=== PATIENT | female | born 1985 | race Caucasian/White ===

== ENCOUNTER → 2017-12-10 11:46 | Outpatient (CLI) | payer OTHER, MEDICAID, SELFPAY ==
[2017-12-10 12:38] LABS: Appearance Urine UA CLEAR; Bilirubin Urine UA NEGATIVE (NEGATIVE); Color Urine UA YELLOW; Glucose Urine UA NEGATIVE (Normal); Ketones Urine UA TRACE (NEGATIVE); Leukocyte Esterase Urine UA NEGATIVE (NEGATIVE); Nitrite Urine UA NEGATIVE (NEGATIVE); Occult Blood Urine UA NEGATIVE (Negative); Protein Urine UA NEGATIVE (Negative); Urobilinogen Urine UA 0.2 E.U./dL (0.2)
[2017-12-10 12:40] LABS: Add Manual Diff / Slide Review NO; Eosinophils Percent Auto 2.7 % (2-4); Hematocrit 38.2 % (36-46); Hemoglobin 13.1 g/dL (12.0-16.0); Lymphocytes Percent Auto 39.1 % (25-40); Mean Corpuscular HGB Conc 34.4 % (30-36); Mean Corpuscular Hemoglobin 31.4 PG (26-34); Mean Corpuscular Volume 91.3 fL (80-100); Monocytes Percent Auto 8.6 % (3-14); Neutrophils Absolute Auto 3600 /uL (3000-5900); Neutrophils Percent Auto 48.6 % (50-75); Platelet Count 200 X10^3/uL (150-400); Red Blood Cell Count 4.18 X10^6/uL (4.0-5.2); Red Cell Distribution Width 11.7 % (11.6-14.8); White Blood Cell Count 7.3 X10^3/uL (4.5-11.0)
[2017-12-10 12:55] LABS: Amorphous Sediment Urine 1+; Bacteria Urine Occasional (0-1); Mucus Urine 1+ (Negative); Squamous Epithelial Cell Urine 5-10 /HPF; WBC Urine 1-5/HPF (0-5/HPF)
[2017-12-10 12:56] LABS: Culture Indicated Urine Cult Not Indicated
[2017-12-10 13:23] LABS: Thyroid Stimulating Hormone 0.76 uIU/mL (0.47-4.68)
== END ==
PROVIDERS: PCP Family Medicine; Visit Provider Nurse Practitioner Family
DX: K92.1 Melena (principal); K59.09 Other constipation; R19.5 Other fecal abnormalities; R19.7 Diarrhea, unspecified
CPT/HCPCS: 36415; 81001; 84443; 85025

== ENCOUNTER → 2017-12-10 12:01 | Outpatient (CLI) | payer OTHER, MEDICAID, SELFPAY ==
--- NOTE | 2017-12-10 12:05 | DI.RAD.S_ITS ---
PROCEDURE: XR ACUTE ABDOMEN SERIES INDICATIONS: diarrhea TECHNIQUE: One view chest and two views of the abdomen were acquired. COMPARISON: None. FINDINGS: Surgical changes and devices: PTE in the central pelvis. Status post right hip nailing.. Chest: Lungs are clear. Heart size is normal. No pleural effusions. No pneumoperitoneum. Abdomen: Bowel gas pattern is normal. A rounded focus of sclerosis is present overlying the right humeral neck, likely bone island but indeterminate. Visualized solid organ contours appear normal. Bones: No suspicious bony lesions. IMPRESSION: 1. Normal chest and abdomen. 2. IUD in the pelvis. Dictated by: Jack Price M.D. on 12/10/2017 at 12:53 Approved by: Jack Price M.D. on 12/10/2017 at 12:55
== END ==
PROVIDERS: PCP Family Medicine; Visit Provider Nurse Practitioner Family
DX: R19.7 Diarrhea, unspecified (principal)
CPT/HCPCS: 36415; 74022; 81001; 84443; 85025

== ENCOUNTER 2017-12-11 19:09 | Emergency (ER) | payer OTHER, MEDICAID, SELFPAY ==
[2017-12-11 19:23] VITALS: BP 158/99; PULSE 68; RESP 14; O2SAT 100
--- NOTE | 2017-12-11 19:26 | ED.GIBLEED ---
HPI - GI Bleed <Natalie Bae PA-C - Last Filed: 12/11/17 21:54> General Chief complaint: GI Bleed Stated complaint: BLOOD IN STOOL Time Seen by Provider: 12/11/17 19:22 Source: patient Mode of arrival: ambulatory Limitations: no limitations History of Present Illness HPI Narrative: This 32-year-old female comes to ED tonight due to increasing frequency of diarrhea and blood in the stools. She just saw her PCP for this yesterday. She states that currently, she is having diarrhea up to a couple of times every hour, up to 30 times daily. She describes the stools as loose and flaky. They are keeping her from regular activity. She states that she will occasionally see mucus in the stools, but for the last 2 months has also had blood in the stools a and on top of the stools intermittently, which she describes as bright red. She states she has had some intermittent nausea with this and at times has had crampy pain which is mild off and on. Currently, she denies any pain or nausea. She states she has had a little bit of burning sensation in the mid abdomen today. She states she has not had any fevers in the last 10 days, prior to that she had some intermittent fever at night. She has not had any weakness or dizziness. She has not had any palpitations, chest pain, dyspnea and no other new complaints today, came in because her PCP told her to come in if symptoms worse. She denies any recent medication changes, new supplements, antibiotic use. She denies any recent travel or known exposures. She denies any diet changes. She states that she had a colonoscopy at age 17 due to constipation followed by a severe diarrhea and this was normal. She has had intermittent constipation and diarrhea since but not with bleeding like she has now. Just prior to onset of these sx about 2 months ago, her son came down with infectious Yersinia hemolytica after being exposed [place] and eating the food. She does not know of an other potential exposures Related Data Home Medications Medication Instructions Recorded Confirmed vit-iron fum-folic ac 1 cap PO QDAY #0 10/19/16 12/10/17 [Mynatal] Previous Rx's Medication Instructions Recorded levonorgestrel [Mirena] 52 mg INTRAU SEE INSTRUCTIONS #1 ea 01/12/17 levothyroxine 0.05 mg PO QAM #30 tab 02/01/17 acyclovir [Zovirax] 400 mg PO BID #90 tab 05/11/17 levothyroxine 88 mcg PO Q DAY #90 tab 06/26/17 Allergies Allergy/AdvReac Type Severity Reaction Status Date / Time latex [LATEX] Allergy Severe HIVES Unverified 12/10/17 11:12 oxycodone [OXYCODONE] AdvReac Severe HALLUCINATIONS, Unverified 12/10/17 11:12 DIDN'T EAT FOR 4 DAYS Review of Systems <RICK Craven Last Filed: 12/11/17 21:54> Review of Systems All systems reviewed & are unremarkable except as noted in HPI and below Exam <RICK Craven Last Filed: 12/11/17 21:54> Narrative Exam Narrative: GENERAL APPEARANCE: Patient sitting comfortably, in no distress. HEENT: PERRL, EOMI, no scleral icterus, conjunctivae pink NECK: Supple LUNGS: Clear to auscultation bilaterally. HEART: Rate and rhythm regular, normal S1 and S2, no S3 or S4. ABDOMEN: Soft, nontender, nondistended, bowel sounds present x 4 quadrants, no masses palpable, no hepatosplenomegaly. EXTREMITIES: No edema DERMATOLOGIC: No jaundice or exanthem NEUROLOGIC: Alert and oriented with normal speech and coordination MS: No joint effusion MDM - GI Bleed <RICK Craven Last Filed: 12/11/17 21:54> Lab Data Attestation: I reviewed the patient's lab results. Result diagrams: 12/11/17 19:30 12/11/17 19:30 Lab Results 12/11/17 12/11/17 12/11/17 Range/Units 19:30 19:30 19:35 WBC 9.0 (4.5-11.0) X10^3/uL RBC 4.31 (4.0-5.2) X10^6/uL Hgb 13.6 (12.0-16.0) g/dL Hct 39.1 (36-46) % MCV 90.8 (80-100) fL MCH 31.5 (26-34) PG MCHC 34.7 (30-36) % RDW 12.0 (11.6-14.8) % Plt Count 213 (150-400) X10^3/uL Neut % (Auto) 49.7 L (50-75) % Lymph % (Auto) 39.9 (25-40) % [place] % (Auto) 6.7 (3-14) % Eos % (Auto) 3.1 (2-4) % Baso % (Auto) 0.6 (0-2) % Neut # (Auto) 4500 (5366-0371) /uL ESR 7 (0-20) MM/HR Sodium 143 (137-145) mmol/L Potassium 3.7 (3.4-5.1) mmol/L Chloride 103.0 (98-107) mmol/L Carbon Dioxide 26.0 (22-32) mmol/L BUN 12.0 (7-17) mg/dL Creatinine 0.90 (0.52-1.04) mg/dL Estimated GFR > 60.0 (>60) mL/min BUN/Creatinine Ratio 13.3 (6-22) Glucose 91 (70-100) mg/dL Calcium 9.6 (8.4-10.2) mg/dL Magnesium (1.6-2.3) mg/dL Total Bilirubin 0.4 (0.2-1.3) mg/dL AST 25 (14-36) IU/L ALT 25 (9-52) IU/L Alkaline Phosphatase 63 (38-126) U/L C-Reactive Protein (<1.0) mg/dL Total Protein 8.1 (6.3-8.2) g/dL Albumin 4.9 (3.5-5.0) g/dL Globulin 3.2 (1.7-4.1) g/dL Albumin/Globulin Ratio 1.5 (1.0-2.8) 05/15/18 Range/Units 19:35 WBC (4.5-11.0) X10^3/uL RBC (4.0-5.2) X10^6/uL Hgb (12.0-16.0) g/dL Hct (36-46) % MCV (80-100) fL MCH (26-34) PG MCHC (30-36) % RDW (11.6-14.8) % Plt Count (150-400) X10^3/uL Neut % (Auto) (50-75) % Lymph % (Auto) (25-40) % [place] % (Auto) (3-14) % Eos % (Auto) (2-4) % Baso % (Auto) (0-2) % Neut # (Auto) (7830-6451) /uL ESR (0-20) MM/HR Sodium (137-145) mmol/L Potassium (3.4-5.1) mmol/L Chloride (98-107) mmol/L Carbon Dioxide (22-32) mmol/L BUN (7-17) mg/dL Creatinine (0.52-1.04) mg/dL Estimated GFR (>60) mL/min BUN/Creatinine Ratio (6-22) Glucose (70-100) mg/dL Calcium (8.4-10.2) mg/dL Magnesium 2.0 (1.6-2.3) mg/dL Total Bilirubin (0.2-1.3) mg/dL AST (14-36) IU/L ALT (9-52) IU/L Alkaline Phosphatase (38-126) U/L C-Reactive Protein < 0.5 (<1.0) mg/dL Total Protein (6.3-8.2) g/dL Albumin (3.5-5.0) g/dL Globulin (1.7-4.1) g/dL Albumin/Globulin Ratio (1.0-2.8) <Nena Rockwell, DO - Last Filed: 12/12/17 00:58> Lab Data Lab Results 12/11/17 12/11/17 12/11/17 Range/Units 19:30 19:30 19:35 WBC 9.0 (4.5-11.0) X10^3/uL RBC 4.31 (4.0-5.2) X10^6/uL Hgb 13.6 (12.0-16.0) g/dL Hct 39.1 (36-46) % MCV 90.8 (80-100) fL MCH 31.5 (26-34) PG MCHC 34.7 (30-36) % RDW 12.0 (11.6-14.8) % Plt Count 213 (150-400) X10^3/uL Neut % (Auto) 49.7 L (50-75) % Lymph % (Auto) 39.9 (25-40) % [place] % (Auto) 6.7 (3-14) % Eos % (Auto) 3.1 (2-4) % Baso % (Auto) 0.6 (0-2) % Neut # (Auto) 4500 (4850-1816) /uL ESR 7 (0-20) MM/HR Sodium 143 (137-145) mmol/L Potassium 3.7 (3.4-5.1) mmol/L Chloride 103.0 (98-107) mmol/L Carbon Dioxide 26.0 (22-32) mmol/L BUN 12.0 (7-17) mg/dL Creatinine 0.90 (0.52-1.04) mg/dL Estimated GFR > 60.0 (>60) mL/min BUN/Creatinine Ratio 13.3 (6-22) Glucose 91 (70-100) mg/dL Calcium 9.6 (8.4-10.2) mg/dL Magnesium (1.6-2.3) mg/dL Total Bilirubin 0.4 (0.2-1.3) mg/dL AST 25 (14-36) IU/L ALT 25 (9-52) IU/L Alkaline Phosphatase 63 (38-126) U/L C-Reactive Protein (<1.0) mg/dL Total Protein 8.1 (6.3-8.2) g/dL Albumin 4.9 (3.5-5.0) g/dL Globulin 3.2 (1.7-4.1) g/dL Albumin/Globulin Ratio 1.5 (1.0-2.8) /15/18 Range/Units 19:35 WBC (4.5-11.0) X10^3/uL RBC (4.0-5.2) X10^6/uL Hgb (12.0-16.0) g/dL Hct (36-46) % MCV (80-100) fL MCH (26-34) PG MCHC (30-36) % RDW (11.6-14.8) % Plt Count (150-400) X10^3/uL Neut % (Auto) (50-75) % Lymph % (Auto) (25-40) % [place] % (Auto) (3-14) % Eos % (Auto) (2-4) % Baso % (Auto) (0-2) % Neut # (Auto) (5175-6360) /uL ESR (0-20) MM/HR Sodium (137-145) mmol/L Potassium (3.4-5.1) mmol/L Chloride (98-107) mmol/L Carbon Dioxide (22-32) mmol/L BUN (7-17) mg/dL Creatinine (0.52-1.04) mg/dL Estimated GFR (>60) mL/min BUN/Creatinine Ratio (6-22) Glucose (70-100) mg/dL Calcium (8.4-10.2) mg/dL Magnesium 2.0 (1.6-2.3) mg/dL Total Bilirubin (0.2-1.3) mg/dL AST (14-36) IU/L ALT (9-52) IU/L Alkaline Phosphatase (38-126) U/L C-Reactive Protein < 0.5 (<1.0) mg/dL Total Protein (6.3-8.2) g/dL Albumin (3.5-5.0) g/dL Globulin (1.7-4.1) g/dL Albumin/Globulin Ratio (1.0-2.8) Course <Natalie Bae PA-C - Last Filed: 12/11/17 21:54> Hospital Course: Patient's lab work is stable. Her inflammatory markers are normal. We were going to do stool as a however she was unable to give a sample while here. She does not appear to need hospitalization. On literature review there are cases of Yersinia with prolonged diarrhea and bleed. Given her exposure, I explained infectious etiology needs to be ruled out. We gave her collection containers I advised her to call PCP office 1st thing in the morning to see if they could send a lab order for her since this could not be completed tonight. Advise that based on her findings today, imaging study is not needed now. She has no indication of obstruction or surgical issue, however we discussed that if there is no infectious cause found, certainly repeat colonoscopy with biopsies to evaluate for microscopic colitis and other chronic issues may be warranted especially given her joint pain Orders Ordered: ED Orders 12/11/17 19:30 Complete Blood Count AUTO DIFF Stat Comprehensive Metabolic Panel Stat 12/11/17 19:35 C-Reactive Protein Quant Stat Erythrocyte Sedimentation Rate Stat Magnesium Stat Discontinued Medications Al Hydrox/Mg Hydrox/Simethicone 20 ml/ Lidocaine HCl 15 ml 0 ml PO NOW ONE Stop: 12/11/17 19:49 Last Admin: 12/11/17 20:02 Dose: 45 ml Pantoprazole Sodium (Protonix) 40 mg PO NOW ONE Stop: 12/11/17 19:49 Last Admin: 12/11/17 20:05 Dose: 40 mg Last Vital Signs Temp 98.6 F 12/11/17 21:02 Pulse 53 L 12/11/17 21:02 Resp 18 12/11/17 21:02 BP 116/85 H 12/11/17 21:02 Pulse Ox 97 12/11/17 21:02 <Nena Rockwell DO - Last Filed: 12/12/17 00:58> Orders Ordered: ED Orders 12/11/17 19:30 Complete Blood Count AUTO DIFF Stat Comprehensive Metabolic Panel Stat 12/11/17 19:35 C-Reactive Protein Quant Stat Erythrocyte Sedimentation Rate Stat Magnesium Stat Discontinued Medications Al Hydrox/Mg Hydrox/Simethicone 20 ml/ Lidocaine HCl 15 ml 0 ml PO NOW ONE Stop: 12/11/17 19:49 Last Admin: 12/11/17 20:02 Dose: 45 ml Pantoprazole Sodium (Protonix) 40 mg PO NOW ONE Stop: 12/11/17 19:49 Last Admin: 12/11/17 20:05 Dose: 40 mg Last Vital Signs Temp 98.6 F 12/11/17 21:02 Pulse 53 L 12/11/17 21:02 Resp 18 12/11/17 21:02 BP 116/85 H 12/11/17 21:02 Pulse Ox 97 12/11/17 21:02 Discharge Plan Departure Patient Disposition: Home, Self-Care Clinical Impression: Bloody diarrhea Discharge Date/Time: 12/11/17 21:01 Interventions: ED Discharge Assessment Last Done: 12/11/17 21:02 Instructions: DI for Diarrhea and Traveler's Diarrhea -- Adult, DI for Rectal Bleeding Activity Restrictions/Additional Instructions: Your lab work is stable from yesterday. Your inflammatory markers are normal. These things are reassuring, however since you were not able to give us a stool sample today, please call [facility] first thing tomorrow to see if they can leave an order for a GI panel (or fax one to your local lab). Let them know we have given you the containers for this so you can take a sample to the lab. Also have them note on the lab order that you were exposed to Yersinia (possibly) prior to the symptoms starting. If infection is ruled out, then from what you have described today and from your history the next step would be a colonoscopy with biopsies to evaluate for microscopic disease. There is no indication of a bowel obstruction or other surgical issue on your exam today that a CT scan would be helpful for right now. Please return as we talked about if you have any acutely worsening symptoms Prescriptions: No Action vit-iron fum-folic ac [Mynatal] 1 EACH capsule 1 cap PO QDAY Qty: 0 RF: 0 levonorgestrel [Mirena] 1 EACH intrauterine device 52 mg INTRAU SEE INSTRUCTIONS Qty: 1 RF: 0 levothyroxine 50 MCG tablet 0.05 mg PO QAM Qty: 30 RF: 12 acyclovir [Zovirax] 400 MG tablet 400 mg PO BID Qty: 90 RF: 3 levothyroxine 88 MCG tablet 88 mcg PO Q DAY Qty: 90 RF: 3 Referrals: Tomasa Goldberg MD [Primary Care Provider] - <Nena Rockwell DO - Last Filed: 12/12/17 00:58> Sign out: I was immediately available in the department for consultation. Documentation has been reviewed. I agree with assessment and plan.
[2017-12-11 19:28] VITALS: TEMP 36.8
[2017-12-11 19:46] LABS: Add Manual Diff / Slide Review NO; Basophils Percent Auto 0.6 % (0-2); Eosinophils Percent Auto 3.1 % (2-4); Hematocrit 39.1 % (36-46); Hemoglobin 13.6 g/dL (12.0-16.0); Lymphocytes Percent Auto 39.9 % (25-40); Mean Corpuscular HGB Conc 34.7 % (30-36); Mean Corpuscular Hemoglobin 31.5 PG (26-34); Mean Corpuscular Volume 90.8 fL (80-100); Monocytes Percent Auto 6.7 % (3-14); Neutrophils Absolute Auto 4500 /uL (3000-5900); Neutrophils Percent Auto 49.7 % (50-75); Platelet Count 213 X10^3/uL (150-400); Red Blood Cell Count 4.31 X10^6/uL (4.0-5.2)
[2017-12-11 19:58] LABS: Alanine Aminotransferase 25 IU/L (9-52); Albumin 4.9 g/dL (3.5-5.0); Albumin Globulin Ratio 1.5 (1.0-2.8); Alkaline Phosphatase 63 U/L (38-126); Aspartate Aminotransferase 25 IU/L (14-36); BUN Creatinine Ratio 13.3 (6-22); Bilirubin Total 0.4 mg/dL (0.2-1.3); Calcium 9.6 mg/dL (8.4-10.2); Estimated Glomerular Filt Rate > 60.0 mL/min (>60); Globulin 3.2 g/dL (1.7-4.1); Glucose 91 mg/dL (70-100); HEMOLYSIS < 15 (0-50); Potassium 3.7 mmol/L (3.4-5.1); Sodium 143 mmol/L (137-145); Total Protein 8.1 g/dL (6.3-8.2)
[2017-12-11 20:01] LABS: C-Reactive Protein Quant < 0.5 mg/dL (<1.0)
[2017-12-11] MEDS: MAG HYDROX/ALUMINUM/SIMETH SUS 20 ML, LIDOCAINE VISCOUS 2% 15 ML PO (20:02)
[2017-12-11 20:04] LABS: Erythrocyte Sedimentation Rate 7 MM/HR (0-20)
[2017-12-11] MEDS: PANTOPRAZOLE 20 MG TABLET 40 MG PO (20:05)
[2017-12-11 21:02] VITALS: BP 116/85; PULSE 53; RESP 18; TEMP 37; O2SAT 97
== END 2017-12-11 21:01 | disposition home or self-care (01) ==
PROVIDERS: Emergency Provider Internal Medicine; PCP Family Medicine
DX: K92.1 Melena (principal)
CPT/HCPCS: 36591; 80053; 83735; 85025; 85651; 86140; 99282; 99283

== ENCOUNTER → 2017-12-18 14:10 | Outpatient (CLI) | payer OTHER, MEDICAID, SELFPAY ==
--- NOTE | 2017-12-18 14:11 | DI.US.S_ITS ---
PROCEDURE: US PELVIC COMPLETE INDICATIONS: CRAMPING TECHNIQUE: Real-time scanning was performed of the pelvic organs, with image documentation. Additional endovaginal scanning was necessary due to incomplete visualization of the adnexal and endometrial structures by transabdominal scanning. COMPARISON: None. FINDINGS: Transabdominal scanning: Limited scanning through the kidneys shows no hydronephrosis. No pathologic free abdominal or pelvic fluid. Endovaginal scanning: Uterus: Uterus is normal in size at 3.7 x 6.8 cm. The endometrium measures 4 mm in combined thickness. IUD appears to be penetrating the uterine wall on the right. Ovaries: Ovaries appear normal measuring 26 x 34 x 34 mm right and 24 x 25 x 35 mm left. 19 mm dominant right ovarian follicle. IMPRESSION: 1. IUD appears to be penetrating the right uterine wall, extending to within 4 mm from the serosa. 2. Normal ovaries. Dictated by: Jack Price M.D. on 12/18/2017 at 15:41 Approved by: Jack Price M.D. on 12/18/2017 at 15:45
--- NOTE | 2017-12-18 14:11 | DI.US.S_ITS ---
PROCEDURE: US ABDOMEN COMPLETE INDICATIONS: ABD PAIN AND DIARRHEA TECHNIQUE: Real-time scanning was performed of the abdominal and retroperitoneal organs, with image documentation. COMPARISON: None. FINDINGS: Liver: Liver is normal in size and homogeneous in echotexture. Gallbladder: Gallbladder is contracted. No visible stones. Normal wall thickness. Biliary ducts: Intrahepatic bile ducts are non-dilated. Extrahepatic bile duct caliber measures 3 mm. Normal is 6-7 mm or less in diameter, or 10 mm or less post-cholecystectomy. Pancreas: Visualized portions of the pancreas are sonographically normal. Spleen: Spleen is normal in size and homogeneous in echotexture. Kidneys: Kidneys are normal in size and echotexture. Right kidney measures 10.9 cm long; left kidney measures 11.4 cm long. No hydronephrosis or nephrolithiasis. No solid masses. Aorta: Visualized aorta is normal in caliber at less than 3 cm. Iliacs: Proximal common iliac arteries are normal in caliber at less than 2.5 cm. IVC: Intrahepatic inferior vena cava is patent. Miscellaneous: No free abdominal fluid. IMPRESSION: Normal abdomen ultrasound, gallbladder is contracted. Dictated by: Jack Price M.D. on 12/18/2017 at 15:45 Approved by: Jack Price M.D. on 12/18/2017 at 15:46
== END ==
PROVIDERS: PCP Family Medicine; Visit Provider Nurse Practitioner Family
DX: T83.32XA Displacement of intrauterine contraceptive device, initial encounter (principal)
CPT/HCPCS: 76700; 76830; 76856

== ENCOUNTER 2017-12-25 14:53 | Day surgery (SDC) | payer OTHER, MEDICAID, SELFPAY ==
--- NOTE | 2017-12-25 | PATH_ITS ---
[facility] Accession Number: [id number] . 01 Material submitted: . PART A: RANDOM COLON BIOPSIES PART B: RECTAL BIOPSIES . 02 Diagnosis: A. Random Colon Biopsies: Fragments of normal appearing colon mucosa with associated superficial melanosis coli. Negative for significant architectural distortion. Negative for significant inflammation, dysplasia and malignancy. . B. Rectal Biopsies: Diffuse chronic active proctitis with associated cryptitis and focal crypt abscesses and focal areas of mucosal erosion. Negative for granulomas. Negative for dysplasia and malignancy. V/12/27/2017 . 02 Electronically signed: . Ryan Vargas MD, Pathologist NPI- [id number] . 01 Gross description: . Part A: RANDOM COLON BIOPSIES: Received in formalin are multiple fragment(s) of berger, soft tissue measuring 1.5 x 0.2 x 0.1 cm in aggregate submitted entirely in 1 cassette(s) Part B: RECTAL BIOPSIES: Received in formalin are multiple fragment(s) of berger, soft tissue measuring 1.0 x 0.2 x 0.1 cm in aggregate submitted entirely in 1 cassette(s) /TRC /TRC . 02 Pathologist provided ICD-10: K51.20 . 02 CPT . 336308, 459000 Performed at: 01 [facility] [address], [place], [place] [id number] MD Ildefonso Lozada MD Phone: [phone] Performed at: 02 [facility] [address] [place], [place] [id number] MD Shadi Freedman MD Phone: [phone]
[2017-12-25 15:05] VITALS: BP 123/76; PULSE 66; RESP 16; TEMP 36.5; O2SAT 100; BMI 22.9
[2017-12-25] MEDS: SODIUM CHLORIDE 0.9% 1,000 ML 200 ML IV (15:10)
--- NOTE | 2017-12-25 16:15 | PM.OP.1 ---
Operative Date/Time/Diagnoses - Date of procedure: 12/25/17 Time of procedure: 16:15 Pre-op diagnosis: Abdominal pain and rectal bleeding Post-op diagnosis: same (Proctitis) Procedure & Clinicians Procedure: Colonoscopy to the cecum with multiple biopsies and cultures Same procedure as scheduled: Yes Indications: Rectal bleeding and abdominal pain Change in bowel habits Surgeon: Blanca Evans Click Yes if Unassisted: Yes Anesthesia Type: Sedation (Fentanyl 300 mcg; Versed 10 mg) Operative Notes Findings: 1. Poor prep 2. No polyps or mass lesions 3. Significant proctitis noted from 15 cm to the anal verge consistent with the full length of the rectum 4. Scattered diverticuli 5. Grade 1-2 internal hemorrhoids with no evidence of active inflammation in the anal canal specifically. Closure Type: not applicable Specimen(s): other (1. Random biopsies of colonic mucosa, 2. Biopsies from the rectum, 3. Cultures) Tourniquet time (min): 1 Procedure in detail: After obtaining informed consent, the patient was brought to the GI suite and placed in the left lateral decubitus position on the examination table. After placement of appropriate monitors, the patient was given incremental doses of Versed and Fentanyl until an appropriate level of sedation was achieved. A time out was held per SCOAP protocol. A digital rectal examination was performed and did not reveal any masses or obstructing lesions. The colonoscope was gently passed into the patient's anus and the entire colon navigated to the level of the cecum with minimal difficulty. Once in the cecum, the scope was withdrawn being sure to go before and beyond all mucosal folds and prominences and get an excellent examination. At 15 cm from the anal verge, there was a significant change in the appearance of the mucosa. It was inflamed and hemorrhagic consistent with acute proctitis. The findings are noted above. At the level of the rectal vault, the scope was retroflexed and the internal anal canal was examined. The scope was straightened and air aspirated from the colon. The instrument was removed from the patient's body and the procedure was concluded. The patient was allowed to awaken from sedation without difficulty and taken to the post-anesthesia care unit in good condition. Total sedation time 31 min Total withdrawal time 16 min Complications: none Condition: stable Disposition: PACU Plan for aftercare: 1. Discharge to home 2. We will contact you with pathology results 3. Mesalamine enemas x3 weeks
[2017-12-25 16:16] VITALS: BP 108/68; PULSE 94; RESP 17; TEMP 37.1; O2SAT 99
[2017-12-25 16:23] VITALS: BP 113/84; PULSE 85; RESP 15; TEMP 37
[2017-12-25] MEDS: MIDAZOLAM 5 MG/5 ML VIAL IV (16:30)
[2017-12-25] MEDS: fentaNYL 250 MCG/5 ML INJ IV (16:31)
[2017-12-25 16:40] VITALS: BP 122/73; PULSE 77; RESP 18; TEMP 36.6
[2017-12-25 17:12] VITALS: BP 117/65; PULSE 70; RESP 16; TEMP 36.5
--- NOTE | 2017-12-25 17:13 | SUR.PHASEII ---
SO FILLED PERSCRIPTION, PT READY TO GO.
--- NOTE | 2017-12-25 17:25 | SUR.PHASEII ---
SO CAME BACK UNABLE TO GET MED FILLED IT IS NOT CARRIED HERE, [facility] CALLED, THEY HAVE APPROXIMATELY 1\2 OF NEEDED PERSCRIPTION, WILL GET MORE WITH PRESCRIPTION IN HAND, PT AND SO INFORMED VOICED AN UNDERSTANDING. PT LEFT WHEN READY AND LEFT IN STABLE CONDITION.
[2017-12-25 19:21] LABS: Clostridium Difficile Tox PCR NEGATIVE for C. diff
--- NOTE | 2018-02-18 12:49 | PM.HP.1 ---
History of Present Illness Date Patient Seen: 12/25/17 Time Patient Seen: 09:50 Chief complaint: [id number] COLONOSCOPY Narrative: Nirali is a pleasant 32-year-old lady who presents today for colonoscopy. She was seen recently in our emergency department for bloody diarrhea. She reports that this has happened off and on for some time. She also reports that it is difficult for her to gain weight. She is understandably frustrated. Patient History Medical History Vaginal delivery (Resolved) Family & Social History Family History: Reviewed 02/18/18 by Blanca Evans MD Social History: household members spouse Prior Living Arrangements House Tobacco & Substance use: Smoking Status Never smoker Meds Home Medications Medication Instructions Recorded Confirmed Type levonorgestrel [Mirena] 52 mg INTRAU SEE INSTRUCTIONS #1 ea 01/12/17 01/21/18 Rx acyclovir [Zovirax] 400 mg PO BID #90 tab 05/11/17 01/21/18 Rx levothyroxine 88 mcg PO Q DAY #90 tab 06/26/17 01/21/18 Rx ondansetron 4 mg disintegrating 4 mg PO Q6H PRN #10 tab 12/17/17 01/21/18 Rx tablet mesalamine 4 gram MN BEDTIME #1680 ml MDD 1 12/25/17 01/21/18 Rx betamethasone dipropionate 0.05 % 1 applictn TOP DAILY PRN #15 gram 01/21/18 Rx topical cream dexamethasone 2 mg tablet 2 mg PO TID #60 tab 01/21/18 Rx clotrimazole 2 % vaginal cream 2 % VAG .DAILY 7 Days #42 gram 01/24/18 Rx cephalexin 500 mg capsule 500 mg PO TID #15 cap 01/28/18 Rx Allergies Allergy/AdvReac Type Severity Reaction Status Date / Time latex [LATEX] Allergy Severe HIVES Unverified 01/07/18 15:55 oxycodone [OXYCODONE] AdvReac Severe HALLUCINATIONS, Unverified 01/07/18 15:55 DIDN'T EAT FOR 4 DAYS Review of Systems Review of Systems All systems reviewed & are unremarkable except as noted in HPI and below Exam Vital Signs (past 8 hours): Oxygen Delivery Method Room Air Narrative Exam Narrative: Very pleasant young lady in no obvious distress HEENT: Normocephalic and atraumatic, pupils equal round reactive to light accommodation with anicteric sclera Lungs: Clear to auscultation bilaterally Heart: Regular rate and rhythm Abdomen: Soft, nontender, active bowel sounds Extremities: Warm and well perfused Assessment & Plan Plan: Assessment/Plan Narrative: Pleasant 32-year-old lady with bloody diarrhea. She has no family history of inflammatory bowel disease of which she is aware. We discussed the risks and benefits of colonoscopy and the patient expressed desire to have the procedure.
--- NOTE | 2018-02-18 12:52 | P.HP_ITS ---
History of Present Illness Date Patient Seen: 12/25/17 Time Patient Seen: 09:50 Chief complaint: 08[address] COLONOSCOPY Narrative: Nirali is a pleasant 32-year-old lady who presents today for colonoscopy. She was seen recently in our emergency department for bloody diarrhea. She reports that this has happened off and on for some time. She also reports that it is difficult for her to gain weight. She is understandably frustrated. Patient History Medical History Vaginal delivery (Resolved) Family & Social History Family History: Reviewed 02/18/18 by Blanca Evans MD Social History: household members spouse Prior Living Arrangements House Tobacco & Substance use: Smoking Status Never smoker Meds Home Medications Medication Instructions Recorded Confirmed Type levonorgestrel [Mirena] 52 mg INTRAU SEE INSTRUCTIONS #1 ea 01/12/17 01/21/18 Rx acyclovir [Zovirax] 400 mg PO BID #90 tab 05/11/17 01/21/18 Rx levothyroxine 88 mcg PO Q DAY #90 tab 06/26/17 01/21/18 Rx ondansetron 4 mg disintegrating 4 mg PO Q6H PRN #10 tab 12/17/17 01/21/18 Rx tablet mesalamine 4 gram MT BEDTIME #1680 ml MDD 1 12/25/17 01/21/18 Rx betamethasone dipropionate 0.05 % 1 applictn TOP DAILY PRN #15 gram 01/21/18 Rx topical cream dexamethasone 2 mg tablet 2 mg PO TID #60 tab 01/21/18 Rx clotrimazole 2 % vaginal cream 2 % VAG .DAILY 7 Days #42 gram 01/24/18 Rx cephalexin 500 mg capsule 500 mg PO TID #15 cap 01/28/18 Rx Allergies Allergy/AdvReac Type Severity Reaction Status Date / Time latex [LATEX] Allergy Severe HIVES Unverified 01/07/18 15:55 oxycodone [OXYCODONE] AdvReac Severe HALLUCINATIONS, Unverified 01/07/18 15:55 DIDN'T EAT FOR 4 DAYS Review of Systems Review of Systems All systems reviewed & are unremarkable except as noted in HPI and below Exam Vital Signs (past 8 hours): Oxygen Delivery Method Room Air Narrative Exam Narrative: Very pleasant young lady in no obvious distress HEENT: Normocephalic and atraumatic, pupils equal round reactive to light accommodation with anicteric sclera Lungs: Clear to auscultation bilaterally Heart: Regular rate and rhythm Abdomen: Soft, nontender, active bowel sounds Extremities: Warm and well perfused Assessment & Plan Plan: Assessment/Plan Narrative: Pleasant 32-year-old lady with bloody diarrhea. She has no family history of inflammatory bowel disease of which she is aware. We discussed the risks and benefits of colonoscopy and the patient expressed desire to have the procedure.
== END 2017-12-25 17:15 | disposition home or self-care (01) ==
PROVIDERS: PCP Family Medicine; Visit Provider Surgery
PROC: 0DJD8ZZ Inspection of Lower Intestinal Tract, Via Natural or Artificial Opening Endoscopic (ICD-10-PCS; CPT 45378; principal; 2017-12-25 16:00)
DX: K51.20 Ulcerative (chronic) proctitis without complications (principal); K62.89 Other specified diseases of anus and rectum; K64.1 Second degree hemorrhoids; K57.30 Diverticulosis of large intestine without perforation or abscess without bleeding
CPT/HCPCS: 45380; 87045; 87046; 87177; 87493; 88305; 99152; 99153; J2250; J3010

== ENCOUNTER → 2018-01-21 09:45 | Outpatient (CLI) | payer OTHER, MEDICAID, SELFPAY ==
[2018-01-21 14:11] LABS: Urine N gonorrhoeae NOT DETECTED
[2018-01-21 14:40] LABS: Urine Chlamydia NOT DETECTED
== END ==
PROVIDERS: PCP Family Medicine; Visit Provider Family Medicine
DX: R31.9 Hematuria, unspecified (principal); N89.8 Other specified noninflammatory disorders of vagina
CPT/HCPCS: 87070; 87077; 87086; 87102; 87205; 87491; 87591

== ENCOUNTER → 2018-01-29 15:17 | Outpatient (CLI) | payer OTHER, MEDICAID, SELFPAY ==
[2018-01-29 17:14] LABS: Hepatitis B Surface Antigen NEGATIVE s/c (NEGATIVE)
[2018-01-31 14:32] LABS: Hepatitis B Surf Ab Qualitativ Reactive (Nonreactive)
[2018-02-01 13:22] LABS: QuantiFERON TB Negative (Negative)
[2018-02-04 06:48] LABS: Hepatitis A Antibody Total Reactive (Nonreactive)
== END ==
PROVIDERS: PCP Family Medicine; Visit Provider Internal Medicine Gastroenterology
DX: K51.211 Ulcerative (chronic) proctitis with rectal bleeding (principal)
CPT/HCPCS: 36415; 86480; 86706; 86708; 87340

== ENCOUNTER → 2018-08-23 14:19 | Outpatient (CLI) | payer OTHER, MEDICAID, SELFPAY ==
--- NOTE | 2018-08-23 | DI.CT.S_ITS ---
PROCEDURE: CT SINUS SCREEN WO CON INDICATIONS: CHRONIC SINUSITIS TECHNIQUE: Noncontrast 3.0 mm axial images acquired from the frontal sinuses to the mid-sella, with coronal and sagittal reformats. For radiation dose reduction, the following was used: automated exposure control, adjustment of mA and/or kV according to patient size. COMPARISON: None. FINDINGS: Image quality: Excellent. Sinuses: There is trace scattered frontal and ethmoid sinus mucosal thickening. Ostiomeatal Complexes: Ostiomeatal complexes are patent. No Ashley cells. Miscellaneous: Visualized intra-orbital contents are normal. No arnie bullosa or paradoxical turbinate curvature. No nasal septal deviation. IMPRESSION: 1. Minimal scattered frontal and ethmoid sinus the coastal thickening. Otherwise, sinuses and ostiomeatal complexes are patent. Dictated by: Hue Gilbert M.D. on 08/23/2018 at 16:34 Approved by: Hue Gilbert M.D. on 08/23/2018 at 16:35
== END ==
PROVIDERS: PCP Family Medicine; Visit Provider Otolaryngology
DX: J32.8 Other chronic sinusitis (principal)
CPT/HCPCS: 70486

== ENCOUNTER → 2019-04-23 16:33 | Outpatient (CLI) | payer OTHER, MEDICAID, SELFPAY ==
--- NOTE | 2019-04-23 16:38 | DI.RAD.S_ITS ---
PROCEDURE: XR RIBS LT MIN 3V W CXR1V INDICATIONS: left anterior rib contusion TECHNIQUE: 2 views of the left ribs were acquired, along with a single view chest. COMPARISON: None. FINDINGS: Surgical changes and devices: None. Bones and chest wall: No fractures or dislocations. No suspicious bony lesions. Overlying soft tissues appear unremarkable. Benign-appearing sclerotic lesion of the proximal diametaphyseal region of the right humerus. Lungs and pleura: No pleural effusions or pneumothorax. Lungs appear clear. Mediastinum: Mediastinal contours appear normal. Heart size is normal. IMPRESSION: Negative for displaced left rib fracture. No evidence acute pulmonary process. Dictated by: Garrett Donovan M.D. on 04/23/2019 at 16:54 Approved by: Garrett Donovan M.D. on 04/23/2019 at 16:56
== END ==
PROVIDERS: PCP Family Medicine; Visit Provider Family Medicine
DX: S20.219A Contusion of unspecified front wall of thorax, initial encounter (principal)
CPT/HCPCS: 71101

== ENCOUNTER → 2019-06-20 10:59 | Outpatient (CLI) | payer OTHER, MEDICAID, SELFPAY | PROVIDERS: PCP Family Medicine; Visit Provider Family Medicine | DX: B37.9 Candidiasis, unspecified (principal) | CPT/HCPCS: 87070; 87077; 87147; 87205 ==

== ENCOUNTER → 2020-04-07 14:13 | Outpatient (CLI) | payer OTHER, MEDICAID, SELFPAY ==
--- NOTE | 2020-04-07 14:15 | DI.RAD.S_ITS ---
PROCEDURE: XR HIP W PEL IF DONE RT 2V INDICATIONS: pain, h/o stress fx post surg, r/o fracture TECHNIQUE: AP pelvis with lateral view of the right hip. COMPARISON: [facility], CR, PELVIS W/LAT HIP (RT) (PNL), 08/28/2014, 10:37. [facility], CR, HIP 2V RIGHT, 07/20/2014, 9:42. FINDINGS: Bones: No acute fractures or dislocations. 3 fixation screws traversing the right femoral neck are redemonstrated. These appear intact and unchanged in alignment. No definite new suspicious lucencies or areas of sclerosis to suggest loosening or stress reaction. Pelvic ring appears intact. No suspicious bony lesions. Soft tissues: The visualized bowel gas pattern is normal. An IUD is again demonstrated centrally in the pelvis. IMPRESSION: 1. Postsurgical changes redemonstrated in the right femoral neck without definite evidence of hardware failure or radiographic evidence of stress reaction. If clinical concern persists, consider further evaluation with MRI. Dictated by: Ildefonso Krishnamurthy M.D. on 04/07/2020 at 16:03 Approved by: Ildefonso Krishnamurthy M.D. on 04/07/2020 at 16:06
== END ==
PROVIDERS: PCP Family Medicine; Referring Provider Physician Assistant; Visit Provider Physician Assistant
DX: M25.551 Pain in right hip (principal)
CPT/HCPCS: 73502

== ENCOUNTER → 2020-05-01 08:47 | Outpatient (CLI) | payer OTHER, MEDICAID, SELFPAY ==
--- NOTE | 2020-05-01 08:48 | DI.MRI.S_ITS ---
PROCEDURE: MR HIP RT WO CON INDICATIONS: right hip pain TECHNIQUE: Noncontrast coronal T1 spin echo and STIR through the bony pelvis. Coronal and axial T2 fast spin echo with fat saturation, sagittal T1 spin echo, and oblique axial T2 fast spin echo with fat saturation through the hip. COMPARISON: None. FINDINGS: Image quality: Diagnostic. Significant susceptibility artifacts are noted. Bones and joints: Patient is status post prior internal fixation of right femoral neck with multiple surgical screw seen. Gall sing significant susceptibility artifacts. No gross marrow edema. No fracture or dislocation. No gross avascular necrosis of right femoral head. Tendons and ligaments: There is suggestion of low-grade tendinosis involving distal right gluteus medius and minimus tendons at their insertion on the greater trochanter, without associated muscle atrophy. The nearby proximal iliotibial band also appears intact. The iliopsoas tendon appears intact, without adjacent bursal fluid collections or evidence for impingement syndrome. The origin of the hamstring tendon is intact at the ischial tuberosity, as well as the associated sacrotuberous ligament. The straight and reflected heads of the rectus femoris muscle origin appear intact, as well as the conjoint tendon. The ligamentum teres appears intact where visualized. Labrum and cartilage: In the absence of intra-articular contrast, there is subtle signal abnormality involving superior anterior labrum concerning for focal labral tear. Cartilage surface of the femoral head appears thinned. The alpha angle of the femur is within normal limits at less than 55 degrees. Soft tissues: Visualized muscles demonstrate normal bulk and internal signal. Quadratus femoris muscle demonstrates no internal edema to suggest ischiofemoral impingement. The proximal sciatic neurovascular bundle appears normal adjacent to the hamstring tendons. No free pelvic fluid. Bladder wall thickness is normal. Genitourinary structures and bowel loops appear normal where visualized. IMPRESSION: 1. Prior fixation of right femoral neck with multiple surgical screws in place. No gross marrow edema. No acute fracture or dislocation. No evidence of avascular necrosis of femoral head. 2. Suggestion of low-grade right distal gluteus medius and minimus tendinosis at their insertions on greater trochanter. No other muscle or tendon signal abnormality is seen. 3. Thinning of articulating cartilages in right femoral head. There is suggestion of subtle superior anterior right hip labral tear. Dictated by: Nayan Gallo M.D. on 05/03/2020 at 8:56 Approved by: Naayn Gallo M.D. on 05/03/2020 at 9:01
== END ==
PROVIDERS: PCP Family Medicine; Referring Provider Family Medicine; Visit Provider Family Medicine
DX: M25.551 Pain in right hip (principal); Z87.81 Personal history of (healed) traumatic fracture
CPT/HCPCS: 73721

== ENCOUNTER → 2020-06-21 12:33 | Outpatient (CLI) | payer OTHER, MEDICAID, SELFPAY ==
[2020-06-21 13:23] LABS: Add Manual Diff / Slide Review NO; Basophils Absolute Auto 100 /uL (0-100); Basophils Percent Auto 0.9 % (0-2); Eosinophils Absolute Auto 200 /uL (0-450); Eosinophils Percent Auto 2.6 % (2-4); Hematocrit 37.9 % (36-46); Hemoglobin 12.9 g/dL (12.0-16.0); Lymphocytes Absolute Auto 2500 /uL (1100-4500); Lymphocytes Percent Auto 36.1 % (25-40); Mean Corpuscular Hemoglobin 30.9 PG (26-34); Mean Corpuscular Volume 90.9 fL (80-100); Monocytes Absolute Auto 500 /uL (0-900); Monocytes Percent Auto 7.7 % (3-14); Neutrophils Absolute Auto 3600 /uL (1500-7000); Neutrophils Percent Auto 52.7 % (50-75); Platelet Count 209 X10^3/uL (150-400); Red Blood Cell Count 4.17 X10^6/uL (4.0-5.2); Red Cell Distribution Width 12.1 % (11.6-14.8); White Blood Cell Count 6.9 X10^3/uL (4.5-11.0)
[2020-06-21 13:54] LABS: Alanine Aminotransferase 16 IU/L (<35); Albumin 4.3 g/dL (3.5-5.0); Albumin Globulin Ratio 1.4 (1.0-2.8); Alkaline Phosphatase 56 U/L (38-126); Aspartate Aminotransferase 25 IU/L (14-36); BUN Creatinine Ratio 17.4 (6-22); Bilirubin Total 0.7 mg/dL (0.2-1.3); Blood Urea Nitrogen 16 mg/dL (7-17); Calcium 9.1 mg/dL (8.4-10.2); Carbon Dioxide 28 mmol/L (22-32); Chloride 104 mmol/L (98-107); Estimated Glomerular Filt Rate > 60.0 mL/min (>60); Glucose 95 mg/dL (70-100); HEMOLYSIS < 15 (0-50); Potassium 4.1 mmol/L (3.4-5.1); Sodium 138 mmol/L (137-145); Total Protein 7.3 g/dL (6.3-8.2)
== END ==
PROVIDERS: PCP Family Medicine; Referring Provider Family Medicine; Visit Provider Family Medicine
DX: R42 Dizziness and giddiness (principal)
CPT/HCPCS: 36415; 80053; 84443; 85025

== ENCOUNTER 2020-11-19 16:00 | Emergency (ER) | payer OTHER, MEDICAID, SELFPAY ==
[2020-11-19] VITALS (8 sets, daily range): BP systolic 115–127; BP diastolic 73–85; PULSE 62–76; RESP 17; TEMP 37.2; O2SAT 95–100
[2020-11-19 17:05] LABS: Add Manual Diff / Slide Review NO; Basophils Absolute Auto 100 /uL (0-100); Basophils Percent Auto 0.7 % (0-2); Eosinophils Absolute Auto 600 /uL (0-450); Eosinophils Percent Auto 5.4 % (2-4); Hematocrit 36.6 % (36-46); Hemoglobin 12.4 g/dL (12.0-16.0); Lymphocytes Absolute Auto 3200 /uL (1100-4500); Lymphocytes Percent Auto 30.6 % (25-40); Mean Corpuscular HGB Conc 33.9 % (30-36); Mean Corpuscular Hemoglobin 30.4 PG (26-34); Mean Corpuscular Volume 89.7 fL (80-100); Monocytes Absolute Auto 1000 /uL (0-900); Monocytes Percent Auto 9.6 % (3-14); Neutrophils Absolute Auto 5600 /uL (1500-7000); Neutrophils Percent Auto 53.7 % (50-75); Platelet Count 200 X10^3/uL (150-400); Red Blood Cell Count 4.08 X10^6/uL (4.0-5.2); Red Cell Distribution Width 13.2 % (11.6-14.8); White Blood Cell Count 10.4 X10^3/uL (4.5-11.0)
[2020-11-19 17:11] LABS: INR 1.2 (0.9-1.3); Prothrombin Time 13.8 SECONDS (10.1-12.7)
[2020-11-19 17:14] LABS: PTT Partial Thromboplastin Tim 36 SECONDS (26.4-36.2)
[2020-11-19 17:16] LABS: Alanine Aminotransferase 17 IU/L (<35); Albumin 4.3 g/dL (3.5-5.0); Albumin Globulin Ratio 1.5 (1.0-2.8); Alkaline Phosphatase 57 U/L (38-126); Aspartate Aminotransferase 24 IU/L (14-36); BUN Creatinine Ratio 18.3 (6-22); Bilirubin Total 0.2 mg/dL (0.2-1.3); Blood Urea Nitrogen 13 mg/dL (7-17); Calcium 9.3 mg/dL (8.4-10.2); Carbon Dioxide 27 mmol/L (22-32); Chloride 103 mmol/L (98-107); Estimated Glomerular Filt Rate > 60.0 mL/min (>60); Globulin 2.9 g/dL (1.7-4.1); Glucose 88 mg/dL (70-100); HEMOLYSIS < 15 (0-50); Lipase 118 U/L (23-300); Sodium 139 mmol/L (137-145); Total Protein 7.2 g/dL (6.3-8.2)
--- NOTE | 2020-11-19 17:56 | ED_ITS ---
HPI - Abdominal Pain General Chief Complaint: Abdominal Pain Stated Complaint: ulcerative collitis flair up Time Seen by Provider: 11/19/20 17:55 Source: patient Mode of arrival: Ambulatory Limitations: no limitations History of Present Illness HPI narrative: 35-year-old female nonsmoker with history of ulcerative colitis which is managed by GI at [facility] presents with a chief complaint of exacerbation of symptoms for the past month and significant worsening since Sunday. She states she has had crampy abdominal pain 20-25 loose stools with blood and clots daily. She often has subjective fever and chills. She is not dizzy nor weak or lightheaded. She has been seen at the [facility] to receive IV fluids for hydration on multiple occasions. Her last colonoscopy was at the end of September and the area of ulcer colitis has spread and is increasing in size per the patient. Her last CT scan was at the end of September at [facility]. She has been taking all of her medications as directed. She denies any dietary change and states that she has been on clear liquids for many weeks. MD complaint: abdominal pain Onset (ago): day(s) Pain Consistency: constant Location: diffuse Severity: moderate Quality: cramping and aching Radiation: none Migration to: no migration Relieving factors: nothing Exacerbating factors: nothing Associated symptoms: diarrhea and hematochezia Related Data Home Medications Medication Instructions Recorded Confirmed mesalamine 400 mg capsule (with 400 mg PO QID 06/25/18 11/19/20 delayed release tablets inside) budesonide 9 mg PO DAILY 11/19/20 11/19/20 fluticasone propionate 1 spray INTRANASAL DAILY 11/19/20 11/19/20 hydrocortisone 100 mg MD DAILY 11/19/20 11/19/20 mesalamine PO 11/19/20 mesalamine g PO 11/19/20 montelukast 10 mg PO DAILY 11/19/20 11/19/20 Previous Rx's Medication Instructions Recorded Mirena 52 mg INTRAU SEE INSTRUCTIONS #1 ea 01/12/17 sumatriptan succinate 100 mg tablet 100 mg PO ONCE #10 tab 10/02/18 levothyroxine 88 mcg tablet 88 mcg PO Q DAY #30 tab 03/30/20 acyclovir 400 mg tablet 400 mg PO BID #180 tab 07/20/20 prednisone See Rx Instructions .ROUTE 11/19/20 .COMPLEX #11 tab Allergies Allergy/AdvReac Type Severity Reaction Status Date / Time latex [LATEX] Allergy Severe HIVES Verified 11/19/20 16:20 oxycodone [OXYCODONE] AdvReac Severe HALLUCINATIONS, Verified 11/19/20 16:20 DIDN'T EAT FOR 4 DAYS Review of Systems Constitutional Constitutional: Denies chills, Denies fatigue, Denies fever(s), Denies frequent falls, Denies lethargy and Denies weakness Eyes Eyes: Denies change in vision, Denies eye discharge, Denies irritation and Denies loss of vision ENT Ears, Nose, Mouth, and Throat: Denies change in voice, Denies dizziness, Denies neck pain, Denies sore throat and Denies throat swelling Cardiovascular Cardiovascular: Denies chest pain, Denies irregular heart rhythm, Denies lightheadedness, Denies palpitations, Denies dyspnea, Denies dyspnea on exertion and Denies orthopnea Respiratory Respiratory: Denies cough, Denies dyspnea, Denies dyspnea on exertion and Denies wheezing Gastrointestinal Gastrointestinal: Reports abdominal pain, Denies change in bowel habits, Reports diarrhea, Denies nausea and Denies vomiting Musculoskeletal Musculoskeletal: Denies neck pain and Denies numbness Integumentary/Breasts Skin/Breast: Denies pruritus, Denies erythema, Denies rash and Denies wounds Neurologic Neurologic: Denies behavioral changes, Denies confusion, Denies dizziness, Denies frequent falls, Denies loss of vision, Denies numbness and Denies weakness Psychiatric Psychiatric: Denies anxiety, Denies behavioral changes, Denies confusion, Denies depression, Denies homicidal ideation and Denies suicidal ideation Endocrine Endocrine: Denies fatigue, Denies flushing and Denies palpitations Hematologic/Lymphatic Hematologic/Lymphatic: Denies easy bruising Allergic/Immunologic Allergic/Immunologic: Denies urticaria, Denies throat swelling and Denies wheezing Patient History Medical History Chronic sinusitis Genital herpes Hypothyroidism Right hip pain Ulcerative colitis Vaginal delivery Social History marital status: household members: spouse lives independently: Yes caregiver/support person: No housing: house Smoking Status: Never smoker second hand exposure: No alcohol intake: never substance use type: marijuana Smoking Status: Never smoker alcohol intake frequency: other Substance Use Type: marijuana Exam Narrative Exam Narrative: GENERAL: [35] year old patient appears stated age. Well- nourished, well-developed patient, in mild distress. HEAD: Atraumatic. Normocephalic. EYES: Pupils equal round and reactive. Extraocular motions intact. No scleral icterus. No injection or drainage. ENT: Nose without bleeding, purulent drainage. Throat without erythema, tonsillar hypertrophy or exudate. Airway patent. NECK: Trachea midline. Non tender CARDIOVASCULAR: Regular rate and rhythm without murmurs, gallops, or rubs. RESPIRATORY: Clear to auscultation. Breath sounds equal bilaterally. No wheezes, rales, or rhonchi. GASTROINTESTINAL: Abdomen soft, generalized tenderness, nondistended. Bowel sounds present in all 4 quadrants EXTREMITIES: No edema or joint tenderness. BACK: Nontender without deformity or crepitance. No flank tenderness. NEURO: AOx3. SKIN: No rash or erythema of visible areas Initial Vital Signs Initial Vital Signs: Vital Signs Temperature 99 F 11/19/20 16:12 Pulse Rate 69 11/19/20 16:12 Respiratory Rate 17 11/19/20 16:12 Blood Pressure 127/84 11/19/20 16:12 Pulse Oximetry 100 11/19/20 16:12 Course Orders Ordered: ED Orders 11/19/20 18:39 CT abdomen pelvis w con Stat 11/19/20 19:05 GI Panel (Film Array) Stat Discontinued Medications Hydromorphone HCl (Hydromorphone 0.5 Mg Inj) 0.5 mg IV NOW ONE Stop: 11/19/20 18:21 Last Admin: 11/19/20 18:31 Dose: 0.5 mg Documented by: JACKY Sodium Chloride (Normal Saline 0.9%) 1,000 mls @ 1,000 mls/hr IV BOLUS ONE Stop: 11/19/20 18:53 Last Infusion: 11/19/20 18:59 Dose: 0 mls/hr Documented by: Admin: 11/19/20 17:57 Dose: 1,000 mls/hr Documented by: JACKY Methylprednisolone (Methylprednisolone 125 Mg/2 Ml Vial) 125 mg IV NOW ONE Stop: 11/19/20 20:48 Last Admin: 11/19/20 20:55 Dose: 125 mg Documented by: GEETA Ondansetron HCl (Ondansetron 4 Mg/2 Ml Inj) 4 mg IV NOW ONE Stop: 11/19/20 16:20 Last Admin: 11/19/20 16:56 Dose: Not Given Documented by: JACKY Vital Signs Vital signs: Vital Signs - 8 hr 11/19/20 18:30 11/19/20 19:10 11/19/20 19:30 Pulse Rate 68 66 66 Blood Pressure 115/73 Pulse Oximetry 100 100 98 11/19/20 20:00 11/19/20 20:30 Pulse Rate 64 62 Blood Pressure Pulse Oximetry 95 96 MDM - Abdominal Pain Lab Data Result diagrams: 11/19/20 16:45 11/19/20 16:45 Labs: Lab Results 11/19/20 11/19/20 11/19/20 Range/Units 16:45 16:45 16:45 WBC 10.4 (4.5-11.0) X10^3/uL RBC 4.08 (4.0-5.2) X10^6/uL Hgb 12.4 (12.0-16.0) g/dL Hct 36.6 (36-46) % MCV 89.7 (80-100) fL MCH 30.4 (26-34) PG MCHC 33.9 (30-36) % RDW 13.2 (11.6-14.8) % Plt Count 200 (150-400) X10^3/uL Neut % (Auto) 53.7 (50-75) % Lymph % (Auto) 30.6 (25-40) % [place] % (Auto) 9.6 (3-14) % Eos % (Auto) 5.4 H (2-4) % Baso % (Auto) 0.7 (0-2) % Neut # (Auto) 5600 (9550-5701) /uL Lymph # (Auto) 3200 (6514-9338) /uL [place] # (Auto) 1000 H (0-900) /uL Eos # (Auto) 600 H (0-450) /uL Baso # (Auto) 100 (0-100) /uL PT 13.8 H (10.1-12.7) SECONDS INR 1.2 (0.9-1.3) APTT 36 (26.4-36.2) SECONDS Sodium 139 (137-145) mmol/L Potassium 4.0 (3.4-5.1) mmol/L Chloride 103 (98-107) mmol/L Carbon Dioxide 27 (22-32) mmol/L BUN 13 (7-17) mg/dL Creatinine 0.71 (0.52-1.04) mg/dL Estimated GFR > 60.0 (>60) mL/min BUN/Creatinine Ratio 18.3 (6-22) Glucose 88 (70-100) mg/dL Calcium 9.3 (8.4-10.2) mg/dL Total Bilirubin 0.2 (0.2-1.3) mg/dL AST 24 (14-36) IU/L ALT 17 (<35) IU/L Alkaline Phosphatase 57 (38-126) U/L Total Protein 7.2 (6.3-8.2) g/dL Albumin 4.3 (3.5-5.0) g/dL Globulin 2.9 (1.7-4.1) g/dL Albumin/Globulin Ratio 1.5 (1.0-2.8) Lipase 118 (23-300) U/L Stl C. cayetanensis PCR (Not Detect) Stool Rotavirus (PCR) (Not Detect) Stool Adenovirus (PCR) (Not Detect) Stool Astrovirus (PCR) (Not Detect) Stool Cryptosporidium PCR (Not Detect) Stl E.coli Shiga Tox PCR (Not Detect) St Sh/Enteroin Ecoli PCR (Not Detect) Stool E coli O157 PCR Stl Enterotoxigenic E PCR (Not Detect) Stool EPEC (PCR) (Not Detect) Stl E. histolytica PCR (Not Detect) Stool Giardia Lamblia PCR (Not Detect) Stool Sapovirus (PCR) (Not Detect) Stl P. shigelloides PCR (Not Detect) St Y.enterocolitica PCR (Not Detect) Stool Vibrio (PCR) (Not Detect) Stl Vibrio cholerae PCR (Not Detect) Stl Enteroaggr Ecoli PCR (Not Detect) Stl Norovirus GI/GII PCR (Not Detect) Campylobacter (PCR) (Not Detect) C. difficile Tox (PCR) (Not Detect) Salmonella (PCR) (Not Detect) 11/19/20 Range/Units 19:05 WBC (4.5-11.0) X10^3/uL RBC (4.0-5.2) X10^6/uL Hgb (12.0-16.0) g/dL Hct (36-46) % MCV (80-100) fL MCH (26-34) PG MCHC (30-36) % RDW (11.6-14.8) % Plt Count (150-400) X10^3/uL Neut % (Auto) (50-75) % Lymph % (Auto) (25-40) % [place] % (Auto) (3-14) % Eos % (Auto) (2-4) % Baso % (Auto) (0-2) % Neut # (Auto) (7698-3010) /uL Lymph # (Auto) (2619-0966) /uL [place] # (Auto) (0-900) /uL Eos # (Auto) (0-450) /uL Baso # (Auto) (0-100) /uL PT (10.1-12.7) SECONDS INR (0.9-1.3) APTT (26.4-36.2) SECONDS Sodium (137-145) mmol/L Potassium (3.4-5.1) mmol/L Chloride (98-107) mmol/L Carbon Dioxide (22-32) mmol/L BUN (7-17) mg/dL Creatinine (0.52-1.04) mg/dL Estimated GFR (>60) mL/min BUN/Creatinine Ratio (6-22) Glucose (70-100) mg/dL Calcium (8.4-10.2) mg/dL Total Bilirubin (0.2-1.3) mg/dL AST (14-36) IU/L ALT (<35) IU/L Alkaline Phosphatase (38-126) U/L Total Protein (6.3-8.2) g/dL Albumin (3.5-5.0) g/dL Globulin (1.7-4.1) g/dL Albumin/Globulin Ratio (1.0-2.8) Lipase (23-300) U/L Stl C. cayetanensis PCR Not detected (Not Detect) Stool Rotavirus (PCR) Not detected (Not Detect) Stool Adenovirus (PCR) Not detected (Not Detect) Stool Astrovirus (PCR) Not detected (Not Detect) Stool Cryptosporidium PCR Not detected (Not Detect) Stl E.coli Shiga Tox PCR Not detected (Not Detect) St Sh/Enteroin Ecoli PCR Not detected (Not Detect) Stool E coli O157 PCR Not Reportable Stl Enterotoxigenic E PCR Not detected (Not Detect) Stool EPEC (PCR) Not detected (Not Detect) Stl E. histolytica PCR Not detected (Not Detect) Stool Giardia Lamblia PCR Not detected (Not Detect) Stool Sapovirus (PCR) Not detected (Not Detect) Stl P. shigelloides PCR Not detected (Not Detect) St Y.enterocolitica PCR Not detected (Not Detect) Stool Vibrio (PCR) Not detected (Not Detect) Stl Vibrio cholerae PCR Not detected (Not Detect) Stl Enteroaggr Ecoli PCR Not detected (Not Detect) Stl Norovirus GI/GII PCR Not detected (Not Detect) Campylobacter (PCR) Not detected (Not Detect) C. difficile Tox (PCR) Not detected (Not Detect) Salmonella (PCR) Not detected (Not Detect) Point of care testing: Point of Care Testing Test Results Negative Urine Dip Bedside Urine Glucose Negative Bedside Urine Bilirubin - Negative Bedside Urine Ketone - Negative Urine Specific [place] 1.030 Bedside Urine Occult Blood - Negative Bedside Urine pH 6 Bedside Urine Protein - Negative Bedside Urine Urobilinogen - Negative Bedside Urine Nitrite - Negative Bedside Urine Leukocytes - Negative Esterase Imaging Data CT scan - abdomen/pelvis: Radiologist's Impression: [address] [id number] Scan ReportSigned Patient: Nirali Velasquez R#: [id number]: 1985Acct:[id number]/Sex: 35 / FDate of Service: 11/19/20Loc: EDAccession Number: [id number] Procedure: CT abdomen pelvis w con Ordering Provider: Eliu Isabel D.O. PROCEDURE: CT ABDOMEN PELVIS W CON INDICATIONS: severe pain, known UC TECHNIQUE: After the administration of intravenous contrast, 5 mm thick sections acquired from the diaphragm to the symphysis. 5 mm coronal and sagittal reformats were acquired. For radiation dose reduction, the following was used: automated exposure control, adjustment of mA and/or kV according to patient size. COMPARISON: [facility], CT, CT ABDOMEN PELVIS WITH CONTRAST, 09/28, 19:11. FINDINGS: ABDOMEN: Partially visualized bilateral breast prostheses Lung bases: Normal Liver: Normal Gallbladder: Unremarkable. Bile ducts: Normal Pancreas: Normal. Spleen: Normal. Adrenal glands: Normal Kidneys: Normal Stomach: Normal Bowel: There is long segment rectal and distal sigmoid colonic wall thickening with adjacent inflammatory fat stranding in keeping with the patient's given clinical history of ulcerative colitis No abscess identified. A presumed pill fragment is seen in the right lower quadrant on image 68/2. Other: No free fluid or air. Abdominal nodes: Normal Aorta and IVC: Normal in size. Ventral wall: Normal PELVIS: Bladder: Normal. Incidentally noted IUD Inguinal: No hernia. Pelvic nodes: Normal Bones: No suspicious bony lesions. No vertebral body compression fractures. IMPRESSION: Long segment distal colonic and rectal wall thickening in keeping with inflammatory bowel disease, which appears slightly worsened since 10/18/20. Dictated by: Alejandro Horne M.D. on 11/19/2020 at 19:19 Approved by: Alejandro Horne M.D. on 11/19/2020 at 19:24 Discharge Plan Departure Patient Disposition: Home Clinical Impression: Ulcerative colitis Qualifiers: Ulcerative colitis location: unspecified ulcerative colitis location Digestive disease complication type: unspecified complication Qualified Code(s): K51.919 - Ulcerative colitis, unspecified with unspecified complications Instructions: DI for Ulcerative Colitis Activity Restrictions/Additional Instructions: *You have been diagnosed with [acute ulcerative colitis flare] *What to do: *Take medications as directed: I have spoken with Dr. Cook and he wants me to start you on a very low-dose of prednisone, of furthermore, he asked that you contact his office Sunday morning to be seen in follow-up *Follow up with your primary care provider in 2-3 days, call for an appointment. Let them know you were seen in the Emergency Department and that we ask that you be seen in follow up *Return to ER if you should have any new, worsening or concerning symptoms Prescriptions: New prednisone 20 mg tablet See Rx Instructions .ROUTE .COMPLEX Qty: 11 RF: 0 No Action Mirena 1 EACH intrauterine device 52 mg INTRAU SEE INSTRUCTIONS Qty: 1 RF: 0 levothyroxine 88 mcg tablet 88 mcg PO Q DAY Qty: 30 RF: 11 acyclovir 400 mg tablet 400 mg PO BID Qty: 180 RF: 3 mesalamine 400 mg capsule (with del rel tablets) 400 mg PO QID RF: 0 hydrocortisone 100 mg/60 mL enema 100 mg MD DAILY RF: 0 montelukast 10 mg tablet 10 mg PO DAILY RF: 0 fluticasone propionate 50 mcg/actuation spray,suspension 1 spray INTRANASAL DAILY RF: 0 mesalamine 1.2 gram tablet,delayed release (DR/EC) PO RF: 0 mesalamine 0.375 gram capsule,extended release 24hr PO RF: 0 budesonide 9 mg tablet,delayed and ext.release 9 mg PO DAILY RF: 0 sumatriptan succinate 100 mg tablet 100 mg PO ONCE Qty: 10 RF: 1 Referrals: Hugh Cook MD [Non-Staff] - Natalie Henriquez MD [Primary Care Provider] -
[2020-11-19] MEDS: SODIUM CHLORIDE 0.9% 1,000 ML 1000 ML IV (17:57)
[2020-11-19] MEDS: HYDROMORPHONE 0.5 MG INJ IV (18:31)
--- NOTE | 2020-11-19 18:39 | DI.CT.S_ITS ---
PROCEDURE: CT ABDOMEN PELVIS W CON INDICATIONS: severe pain, known UC TECHNIQUE: After the administration of intravenous contrast, 5 mm thick sections acquired from the diaphragm to the symphysis. 5 mm coronal and sagittal reformats were acquired. For radiation dose reduction, the following was used: automated exposure control, adjustment of mA and/or kV according to patient size. COMPARISON: [facility], CT, CT ABDOMEN PELVIS WITH CONTRAST, 10/18/2020, 19:11. FINDINGS: ABDOMEN: Partially visualized bilateral breast prostheses Lung bases: Normal Liver: Normal Gallbladder: Unremarkable. Bile ducts: Normal Pancreas: Normal. Spleen: Normal. Adrenal glands: Normal Kidneys: Normal Stomach: Normal Bowel: There is long segment rectal and distal sigmoid colonic wall thickening with adjacent inflammatory fat stranding in keeping with the patient's given clinical history of ulcerative colitis No abscess identified. A presumed pill fragment is seen in the right lower quadrant on image 68/2. Other: No free fluid or air. Abdominal nodes: Normal Aorta and IVC: Normal in size. Ventral wall: Normal PELVIS: Bladder: Normal. Incidentally noted IUD Inguinal: No hernia. Pelvic nodes: Normal Bones: No suspicious bony lesions. No vertebral body compression fractures. IMPRESSION: Long segment distal colonic and rectal wall thickening in keeping with inflammatory bowel disease, which appears slightly worsened since 10/18/20. Dictated by: Alejandro Horne M.D. on 11/19/2020 at 19:19 Approved by: Alejandro Horne M.D. on 11/19/2020 at 19:24
[2020-11-19 20:33] LABS: Adenovirus F 40/41 Not Detected (Not Detect); Astrovirus Not Detected (Not Detect); Campylobacter Not Detected (Not Detect); Clostridium difficile toxin AB Not Detected (Not Detect); Cryptosporidium Not Detected (Not Detect); Cyclospora cayetanensis Not Detected (Not Detect); Entamoeba histolytica Not Detected (Not Detect); Enteroaggregative E.coli Not Detected (Not Detect); Enteropathogenic E.coli Not Detected (Not Detect); Enterotoxigenic E.coli It/st Not Detected (Not Detect); Giardia lamblia Not Detected (Not Detect); Norovirus GI/GII Not Detected (Not Detect); Plesiomonsa shigelloides Not Detected (Not Detect); Rotavirus A Not Detected (Not Detect); Salmonella Not Detected (Not Detect); Sapovirus Not Detected (Not Detect); Shiga-like toxin-prod E.coli Not Detected (Not Detect); Shigella/Enteroinvasive E.coli Not Detected (Not Detect); Vibrio Not Detected (Not Detect); Vibrio cholerae Not Detected (Not Detect); Yersinia enterocolitica Not Detected (Not Detect)
[2020-11-19] MEDS: methylPREDNISolone 125 MG/2 ML VIAL IV (20:55)
== END 2020-11-19 21:04 | disposition home or self-care (01) ==
PROVIDERS: Emergency Medicine; Emergency Provider Emergency Medicine; PCP Family Medicine
DX: K51.919 Ulcerative colitis, unspecified with unspecified complications (principal)
CPT/HCPCS: 36415; 74177; 80053; 81003; 81025; 83690; 85025; 85610; 85730; 87507; 96361; 96374; 96375; 99284; J1170; J2930; Q9967

== ENCOUNTER → 2022-02-09 12:36 | Outpatient (CLI) | payer OTHER, MEDICAID, SELFPAY ==
--- NOTE | 2022-02-09 12:39 | DI.RAD.S_ITS ---
PROCEDURE: FL HIP INJECTION MR/CT RT INDICATIONS: PAIN IN RIGHT HIP/HISTORY OF STRESS FRACTURE TECHNIQUE: The indications, alternatives, benefits, risks, and complications of the procedure were explained to the patient. Written informed consent was obtained and placed in the chart. The hip was examined fluoroscopically with the legs fixed in slight internal rotation, and a site for needle placement chosen for entry into the hip joint from an anterior approach. Care was taken to locate the common femoral artery and vein beforehand. The skin was prepped and draped in a sterile fashion, and 1% Lidocaine infiltrated from skin down to joint capsule. A spinal needle was inserted into the joint, and a small amount of iodinated contrast media injected to confirm intra-articular placement of the needle tip. This was followed by approximately 10 mL dilute solution of a gadolinium containing MR contrast agent. The needle was removed and a dressing was applied. The patient was given postprocedural instructions and sent to the MR suite for imaging. COMPARISON: None. FINDINGS: A single fluoroscopic spot image demonstrates intra-articular location of injected iodinated contrast. IMPRESSION: Successful fluoroscopically guided administration of dilute Gadolinium solution into the hip joint for MR arthrogram. Dictated by: Rosey Ruiz MD, PhD on 02/09/2022 at 15:47 Approved by: Rosey Ruiz MD, PhD on 02/09/2022 at 15:48
--- NOTE | 2022-02-09 12:40 | DI.MRI.S_ITS ---
PROCEDURE: MR HIP RT W CON INDICATIONS: PAIN IN RIGHT HIP/HISTORY OF STRESS FRACTURE TECHNIQUE: After the administration of 10 mL of dilute intra-articular Gadolinium contrast, coronal STIR of the bony pelvis; coronal and oblique axial T1 spin echo with fat saturation, axial T2 fast spin echo with fat saturation, sagittal T1 spin echo with and without fat saturation of the involved hip. COMPARISON: [facility], CR, XR PELVIS WITH LATERAL HIP RIGHT, 01/23/2022, 13:40. FINDINGS: Image quality: Degraded by metallic artifact. Bones and joints: ORIF of the right femoral neck has been performed, as before. Bone marrow of the pelvic ring and proximal femurs show normal signal throughout. No intraosseous lesions or fractures. No avascular necrosis of the femoral head. The visualized lower lumbar spine appears normally aligned. The ligamental, neck, and labral plicae appear normal where visualized. Tendons and ligaments: The gluteus medius and minimus tendons appear intact, without associated muscle atrophy. The nearby proximal iliotibial band also appears intact. The iliopsoas tendon appears intact, without adjacent bursal fluid collections or evidence for impingement syndrome. The origin of the hamstring tendon is intact at the ischial tuberosity, as well as the associated sacrotuberous ligament. The straight and reflected heads of the rectus femoris muscle origin appear intact, as well as the conjoint tendon. The ligamentum teres appears intact where visualized. Labrum and cartilage: The acetabular labrum is suboptimally evaluated secondary to metallic artifact, but demonstrates no definite tearing. Cartilage surface of the femoral head appears of normal thickness. No paralabral cysts. The alpha angle of the femur is within normal limits at less than 55 degrees. Soft tissues: Visualized muscles demonstrate normal bulk and internal signal. Quadratus femoris muscle demonstrates no internal edema to suggest ischiofemoral impingement. The proximal sciatic neurovascular bundle appears normal adjacent to the hamstring tendons. No free pelvic fluid. Bladder wall thickness is normal. Genitourinary structures and bowel loops appear normal where visualized. IMPRESSION: 1. Limited examination secondary to metallic artifact. No definite labral tearing. 2. Postsurgical sequelae. 3. No explanation for hip pain. Dictated by: Bill Monae M.D. on 02/09/2022 at 15:14 Transcribed by: CHAU on 02/09/2022 at 15:15 Approved by: Bill Monae M.D. on 02/09/2022 at 16:56
== END ==
PROVIDERS: PCP Family Medicine; Referring Provider Physician Assistant; Visit Provider Physician Assistant
DX: M25.551 Pain in right hip (principal); Z87.312 Personal history of (healed) stress fracture
CPT/HCPCS: 27093; 73722; 77002; 77080

== ENCOUNTER → 2022-07-12 09:01 | Outpatient (CLI) | payer OTHER, MEDICAID, SELFPAY ==
--- NOTE | 2022-07-12 09:03 | DI.US.S_ITS ---
PROCEDURE: US PELVIC COMPLETE INDICATIONS: f/u L ovarian cyst TECHNIQUE: Real-time scanning was performed of the pelvic organs, with image documentation. Additional endovaginal scanning was necessary due to incomplete visualization of the adnexal and endometrial structures by transabdominal scanning. COMPARISON: [facility], CT, CT ABDOMEN PELVIS W CON, 11/19/2020, 19:04. FINDINGS: Mildly heterogeneous uterine echotexture and mild enlargement of the uterus. No focal mass. Both ovaries normal in size measuring 7 cc on the right and 10 cc on the left. Simple cyst in the left ovary measures 1.9 cm. There are few other scattered sub cm cysts in both ovaries. No solid ovarian or adnexal mass identified. Dilated paraovarian and periuterine veins are present bilaterally. IMPRESSION: Simple cyst in the left ovary measuring up to 1.9 cm. Dilated paraovarian and periuterine veins. Correlate for pelvic congestion syndrome. We strive to produce accurate, complete, and clear reports of imaging services. To assist us in improving patient care, this report was composed using standard report templates and voice recognition software. Therefore, it may contain abnormal punctuation, insertions and/or omissions. Occasional wrong-word or sound-alike substitutions may occur. Though we review the report and make efforts to correct it, we do recommend that the report be read carefully in proper context to recognize any text inaccuracies. Dictated by: Bhaskar Garcia M.D. on 07/12/2022 at 16:12 Approved by: Bhaskar Garcia M.D. on 07/12/2022 at 16:18
== END ==
PROVIDERS: PCP Family Medicine; Referring Provider Family Medicine; Visit Provider Family Medicine
DX: N83.292 Other ovarian cyst, left side (principal); I86.8 Varicose veins of other specified sites
CPT/HCPCS: 76830; 76856

== ENCOUNTER 2022-11-06 08:19 | Day surgery (SDC) | payer OTHER, MEDICAID, SELFPAY ==
[2022-11-02 13:19] VITALS: BMI 22.4
[2022-11-06] VITALS (9 sets, daily range): BP systolic 121–138; BP diastolic 69–85; PULSE 59–79; RESP 12–16; TEMP 36.7–37.1; O2SAT 98–100; BMI 22.4
--- NOTE | 2022-11-06 | PATH_ITS ---
[facility] Accession Number: [id number] No. of containers..01 Tissue . 01 Material submitted: . uterus - UTERUS AND BILATERAL FALLOPIAN TUBES . 01 Clinical history: . [facility] W/BILL SALPINGECTOMY . 01 Diagnosis: Uterus and Bilateral Fallopian Tubes, Laparoscopic Supracervical Hysterectomy with Bilateral Salpingectomy (Weight 61 grams): Portions of disordered proliferative endometrium; negative for glandular hyperplasia, cytologic atypia, or malignancy; pseudodecidualized stromal change present, suggestive of possible exogenous hormone effect; patchy benign foreign body giant cell reaction with calcifications and without associated epithelial cells. Myometrium with no significant histomorphologic abnormality. Uterine serosa with no significant histomorphologic abnormality. Longer fallopian tube, complete cross-sections; negative for significant atypia. Anacortes fallopian tube, complete cross-sections; negative for significant atypia. [facility] 11/08/2022 1538 Local . 01 Electronically signed: . Desirae Griggs MD, Pathologist NPI- [id number] . 01 Gross description: . The specimen is received in formalin labeled with the patient's name, , and uterus and bilateral fallopian tubes, and consists of a fragmented uterus (61 grams, aggregating to 10.4 x 6.2 x 3.1 cm), with two detached, unoriented fimbriated fallopian tubes (7.9 x 0.6 cm and 6.2 x 0.7 cm), with no cervix or additional adnexa. The serosa is berger and smooth with no evidence of adhesion or hemorrhage. The presumed endometrium is brown, velvety, and averages 0.2 cm thick with no lesions grossly identified. The myometrium is berger and trabecular measuring up to 2.2 cm in maximum thickness with no nodules or lesions identified. The longer fallopian tube has berger smooth serosa with no cystic structures identified and sectioning reveals an unremarkable stellate lumen. The shorter fallopian tube has beregr smooth serosa with no cystic structures identified and sectioning reveals an unremarkable stellate lumen. Packaging Supervisor sections are submitted as follows: A1-A2: Presumed full thickness sections. A3: Serosa. A4: Longer fallopian tube to include one-half of the bisected fimbriae and cross-sections. A5: Anacortes fallopian tube to include one-half of the bisected fimbriae and cross-sections. ([id number]) /KIERAN 11/07/2022 0946 Local . 01 Pathologist provided ICD-10: N94.89, N83.292, R10.2 . 01 CPT . 908844 Performed at: 01 [facility] [address] [place] [address], [place], [place] [id number] MD Ildefonso Lozada MD Phone: [phone]
[2022-11-06] MEDS: LACTATED RINGERS 1,000 ML 100 ML IV ×2 (08:30→12:58)
[2022-11-06 08:44] LABS: COVID19 -Nasal RAPID Negative (Negative)
--- NOTE | 2022-11-06 09:50 | PM.GYNHP.1 ---
History of Present Illness History of Present Illness Reason for admission: pelvic pain Narrative: Nirali Velasquez is a 37 year old female 3 para 3 who presents for a laparoscopic supracervical hysterectomy/bilateral salpingectomy/removal of left ovarian cyst. This is being done due to pelvic congestion, pelvic pain, and a left ovarian cyst. [facility] Medical History Chronic sinusitis Genital herpes Hypothyroidism Right hip pain Ulcerative colitis Vaginal delivery Social History marital status: household members: spouse and children lives independently: Yes caregiver/support person: No housing: house Smoking Status: Never smoker second hand exposure: No alcohol intake: never substance use type: marijuana Meds Home Medications and Allergies Home Medications Medication Instructions Recorded Confirmed Type levonorgestrel 21 mcg/24 hours (8 52 mg INTRAU SEE INSTRUCTIONS #1 ea 01/12/17 09/24/22 Rx yrs) 52 mg intrauterine device (Mirena) sumatriptan succinate 100 mg tablet 100 mg PO ONCE #10 tabs 10/02/18 09/24/22 Rx fluticasone propionate 50 1 spray intranasal DAILY 11/19/20 09/24/22 History mcg/actuation nasal spray,suspension adalimumab 40 mg/0.8 mL See Rx Instructions SUBCUT .COMPLEX 01/07/21 09/24/22 History subcutaneous pen kit (Humira Pen) triamcinolone acetonide 0.1 % 1 applic topical BID #15 grams 03/29/21 09/24/22 Rx topical ointment acyclovir 400 mg tablet See Rx Instructions .Route 09/13/21 11/06/22 Rx .COMPLEX #60 tabs levothyroxine 88 mcg tablet See Rx Instructions .Route 12/27/21 09/24/22 Rx (Euthyrox) .COMPLEX #30 tabs alprazolam 0.25 mg tablet 0.25 mg PO TID PRN anxiety #30 tabs 10/20/22 Rx Allergies Allergy/AdvReac Type Severity Reaction Status Date / Time latex [LATEX] Allergy Severe HIVES Verified 11/06/22 08:32 oxycodone [OXYCODONE] AdvReac Severe HALLUCINATIONS, Verified 11/06/22 08:32 DIDN'T EAT FOR 4 DAYS NSAIDS (Non-Steroidal AdvReac Verified 11/06/22 09:00 Anti-Inflamma Exam Vital Signs (past 8 hours): - 11/06/22 08:34 Temperature 98.8 F Pulse Rate 63 Respiratory Rate 16 Blood Pressure 130/81 Pulse Oximetry 98 Oxygen Delivery Method Room Air Oxygen Delivery Method Room Air Narrative Exam Narrative: HEENT: No thyromegaly, no anterior cervical or supraclavicular lymphadenopathy. Lungs:Clear to auscultation bilaterally, no wheezes. Cardiovascular: Regular rate and rhythm, no murmurs, rubs, or gallops. Abdomen: No scars. No hepatosplenomegaly. No masses palpable. External genitalia: Normal Vagina: Normal Cervix: Normal Bimanual exam: 9 Week size anterior uterus. Mobile. Left adnexal tenderness. Extremities: No edema Objective Labs Labs: Laboratory Results - last 24 hr 11/06/22 08:28 SARS-CoV-2 (PCR) Negative Assessment & Plan Assessment & Plan narrative: Assessment: 37-year-old 3 para 3 with pelvic congestion, pelvic pain, and a left ovarian cyst Plan: Laparoscopic supracervical hysterectomy/bilateral salpingectomy/excision of left ovarian cyst The risks, benefits, and alternatives to the procedure were explained to the patient. The risks including bleeding, infection, injury to the bowel, bladder, or ureters. Consent form had been previously signed. A full par Q was held. Time Spent With Patient Time with patient: less than 30 minutes
--- NOTE | 2022-11-06 09:53 | PM.PREOP ---
Pre-operative Note COVID-19 Criteria for continued procedure: Non-surgical alternatives not available or appropriate per current SOC Interval Note History & Physical reviewed/Exam performed by Physician: Yes Changes to H&P: No H&P completed within 30 days and has changed as indicated here:: Updated 11/06/22
[2022-11-06] MEDS: CEFAZOLIN 2 GM/100 ML PREMIX 100 ML IV (10:15)
[2022-11-06] MEDS: ACETAMINOPHEN IV 1,000 MG/100 ML VIAL 400 MG IV (10:30)
--- NOTE | 2022-11-06 10:52 | SUR.OPER ---
Lithotomy on padded OR bed. Harriman Pad Positioner under torso. Head on pillow, arms padded and tucked at sides with gel pads. Legs secured in padded yellow fins stirrups.
[2022-11-06] MEDS: BUPIVACAINE 0.5% (PF) 10 ML VIAL 30 ML INJ (11:11)
--- NOTE | 2022-11-06 12:06 | P.OP_ITS ---
Operative Date/Time/Diagnoses Date of procedure: 11/06/22 Time of procedure: 12:06 Pre-op diagnosis: Pelvic congestion Pelvic pain Left ovarian cyst Post-op diagnosis: same Procedure & Clinicians Procedure: Procedures Operation Date: 11/06/22 09:15 Actual Procedure Side Surgeon p Laparoscopic Supracervical Hysterectomy, bilateral salpingectomy and Mirena IUD removal Not Applicable Pati Chirinos MD Indications: Pelvic pain Pelvic congestion Left ovarian cyst Surgeon: Pati Chirinos Digital Field Service Technician: Tea Dhaliwal Anesthesia Type: General and Local Operative Notes Findings: 8 week size anteverted uterus Left ovarian cyst, 2 cm Normal tubes Normal right ovary Normal appendix Normal gallbladder and liver Closure Type: primary Specimen(s): left tube, right tube and uterus Applied: catheter (Removed at the end of the case) Estimated blood loss (mL): 75 Blood products transfused: none Procedure in detail: The patient was taken to the operating room where she was placed in the dorsal supine position. After adequate general endotracheal anesthesia was achieved, she was placed in the dorsal lithotomy position, and prepped and draped in the usual sterile fashion. A timeout was performed. A bivalve speculum was placed into the vagina and the anterior lip of the cervix grasped with a single-tooth tenaculum. The Mirena IUD strings were grasped and it was removed without diff iculty. The cervical os was sequentially dilated until the ZUMI uterine manipulator could pass easily into the endometrial cavity. The single-tooth tenaculum was removed from the anterior lip of the cervix, and the bivalve speculum was removed from the vagina. Attention was then turned to the abdomen where 6 mL of half percent Marcaine with epinephrine were injected in the umbilical fold. A 5 mm incision was made. The Verees needle was placed into the peritoneal cavity, and its placement confirmed by aspiration and drop test. The Verees needle was removed. A 5 mm trocar was placed without difficulty. 2 other incisions were made 4 cm lateral to the umbilicus after 5 mL of half percent Marcaine with epinephrine were injected. These were 5 mm incisions. Two 5 mm trocars were placed under direct visualization. The right tube was grasped with an atraumatic grasper. Using the Powerseal, the mesosalpinx was cauterized and cut all the way down to the cornua of the uterus. The cornua of the uterus was then grasped with an atraumatic grasper. The utero-ovarian ligaments were cauterized and cut. The round ligament and broad ligament was cauterized and cut with the Powerseal. Hemostasis was achieved. The bladder flap was created using the Powerseal with cautery and cut alf across. The uterine arteries on the right side were extensively cauterized with the Powerseal. All of this was repeated on the left side. The remainder of the bladder flap was created using the Powerseal, and the bladder taken down off the lower uterine segment and cervix. Using the Linaloop, the cervix was amputated from the uterus 2 cm above the uterosacral ligaments, after the ZUMI uterine manipulator was removed from the uterus. There was a small amount of bleeding noted from the posterior edge of the cervix, and this was cauterized for hemostasis. A sponge stick was placed into the vagina. The endocervix was cauterized with the spatula cautery. 6 mL of half percent Marcaine with epinephrine were injected above the pubic symphysis. A 12 mm trocar was placed. An Endobag was placed through the suprapubic trocar and the uterus and tubes were placed into the Endobag. The trocar was removed. The edges of the endobag were brought up through the skin. The Darron was placed into the endobag. The uterus and tubes were hand morcellated in approximately 12 pieces. The Endobag was removed from the peritoneal cavity. The pelvis was copiously irrigated with warm normal saline. No bleeding was noted. The instruments are removed from the abdomen. The CO2 was allowed to escape. The suprapubic incision was closed on the fascia with 0 Vicryl. All of the incisions were closed with 4-0 Biosyn in a subcuticular fashion. The moistened sponge stick was removed from the vagina. Sponge, lap, and instrument counts were correct x-2. The patient tolerated the procedure well, was taken to PACU in stable condition. Complications: none Post-operative Condition: stable Disposition: PACU Plan for aftercare: Home after recovery
== END 2022-11-06 13:40 | disposition home or self-care (01) ==
PROVIDERS: PCP Family Medicine; Referring Provider Obstetrics & Gynecology; Visit Provider Obstetrics & Gynecology
PROC: 0UT94ZL Resection of Uterus, Supracervical, Percutaneous Endoscopic Approach (ICD-10-PCS; CPT 58542; principal; 2022-11-06 09:15)
DX: N94.89 Other specified conditions associated with female genital organs and menstrual cycle (principal); N83.202 Unspecified ovarian cyst, left side; Z30.432 Encounter for removal of intrauterine contraceptive device; Z20.822 Contact with and (suspected) exposure to COVID-19
CPT/HCPCS: 58542; 81025; 87635; J0131; J0690; J1100; J1170; J1885; J2250; J2405; J2704; J3010

== ENCOUNTER → 2024-03-28 12:15 | Outpatient (CLI) | payer OTHER, SELFPAY | LOC: LAB 12:15 | PROVIDERS: PCP Family Medicine; Referring Provider Family Medicine; Visit Provider Family Medicine | DX: E03.9 Hypothyroidism, unspecified (principal) | CPT/HCPCS: 36415; 84443 ==

== ENCOUNTER → 2024-12-24 11:26 | Outpatient (CLI) | payer OTHER, SELFPAY ==
[2024-12-24 12:05] LABS: Add Manual Diff / Slide Review NO; Basophils Absolute Auto 100 /uL (0-100); Basophils Percent Auto 0.5 % (0-2); Eosinophils Absolute Auto 100 /uL (0-450); Eosinophils Percent Auto 0.5 % (2-4); Hematocrit 33.7 % (36-46); Hemoglobin 11.4 g/dL (12.0-16.0); Lymphocytes Absolute Auto 5500 /uL (1100-4500); Lymphocytes Percent Auto 38.8 % (25-40); Mean Corpuscular HGB Conc 33.7 % (30-36); Mean Corpuscular Hemoglobin 29.4 PG (26-34); Mean Corpuscular Volume 87.4 fL (80-100); Monocytes Absolute Auto 1800 /uL (0-900); Monocytes Percent Auto 12.5 % (3-14); Neutrophils Absolute Auto 6700 /uL (1500-7000); Neutrophils Percent Auto 47.7 % (50-75); Platelet Count 380 X10^3/uL (150-400); Red Blood Cell Count 3.86 X10^6/uL (4.0-5.2); Red Cell Distribution Width 13.1 % (11.6-14.8); White Blood Cell Count 14.1 X10^3/uL (4.5-11.0)
[2024-12-24 12:30] LABS: Iron 34 ug/dL (37-170)
[2024-12-24 12:33] LABS: Alanine Aminotransferase 23 IU/L (<35); Albumin 3.9 g/dL (3.5-5.0); Albumin Globulin Ratio 1.2 (1.0-2.8); Alkaline Phosphatase 54 U/L (38-126); Aspartate Aminotransferase 27 IU/L (14-36); BUN Creatinine Ratio 12.5 (6-22); Bilirubin Total 0.4 mg/dL (0.2-1.3); Blood Urea Nitrogen 11 mg/dL (7-17); Calcium 9.2 mg/dL (8.4-10.2); Carbon Dioxide 28 mmol/L (22-32); Chloride 105 mmol/L (98-107); Estimated Glomerular Filt Rate > 60 mL/min (>60); Globulin 3.2 g/dL (1.7-4.1); Glucose 91 mg/dL (70-99); HEMOLYSIS < 15 (0-50); Sodium 139 mmol/L (137-145); Total Protein 7.1 g/dL (6.3-8.2)
[2024-12-24 13:06] LABS: Ferritin 12 ng/mL (6-137)
[2024-12-25 14:53] LABS: Rubella Antibody IgG 67.8 IU/mL (>15)
== END ==
PROVIDERS: PCP Family Medicine; Referring Provider Family Medicine; Visit Provider Family Medicine
DX: K51.90 Ulcerative colitis, unspecified, without complications (principal)
CPT/HCPCS: 36415; 80053; 82728; 83540; 85025; 86735; 86762; 86765

== ENCOUNTER → 2024-12-26 14:16 | Outpatient (CLI) | payer OTHER, SELFPAY ==
--- NOTE | 2024-12-26 14:17 | DI.RAD.S_ITS ---
PROCEDURE: XR DEXA AXIAL SKELETON INDICATIONS: osteopenia COMPARISON: [facility], CR, XR DEXA AXIAL SKELETON, 02/09/2022, 12:51. FINDINGS: Lumbar Spine: Bone mineral density 0.902 g/cm2, T score not applicable. Interval 2.6% increase in bone mineral density. Left Femoral Neck: Bone mineral density 0.644 g/cm2, T score not applicable. Interval 2.5% increase in bone mineral density Left Hip: Bone mineral density 0.828 g/cm2, T score not applicable. Interval 3% increase in bone mineral density. Fracture Risk Calculation (when applicable): 10-year fracture risk of a major osteoporotic fracture 4 percent and of a hip fracture 0.7 percent. (T score greater or equal to -1.0 to: NORMAL) (T score from -1.1 to -2.4: OSTEOPENIA) (T score less than or equal to -2.5: OSTEOPOROSIS) IMPRESSION: 1. Interval increase in bone mineral density of the lumbar spine, left femoral neck, and left hip. 2. Delineation of bone mineral density into normal versus osteopenia versus osteoporosis limited due to the patient being below the age range for software calculation. Follow-up guidelines as follows: Osteoporosis: Consider a repeat DEXA and Vertebral Fracture Assessment (VFA) exam in 2 years or sooner if medically necessary, to reassess this patient's status. Osteopenia: Consider a repeat DEXA in 2-3 years to reassess this patient's status, or if there is a new clinical indication. Normal: Consider a repeat DEXA in 5 years or sooner, or if there is a new clinical indication. All treatment decisions require clinical judgment and consideration of individual patient factors, including patient preferences, comorbidities, previous drug use, risk factors not captured in the FRAX model (e.g., frailty, falls, vitamin D deficiency, increased bone turnover, interval significant decline in bone density ) and possible under- or over-estimation of fracture risk by FRAX. In addition, the NOF Guide recommends that FDA-approved medical therapies be considered in postmenopausal women and men age >= 50 years with a: * Hip or vertebral (clinical or morphometric) fracture * T-score of <=-2.5 at the spine or hip * Ten-year fracture probability by FRAX of >= 3% for hip fracture or >=20% for major osteoporotic fracture. Dictated by: Magdiel Tadeo M.D. on 12/26/2024 at 16:08 Approved by: Magdiel Tadeo M.D. on 12/26/2024 at 16:12
== END ==
PROVIDERS: PCP Family Medicine; Referring Provider Family Medicine; Visit Provider Family Medicine
DX: M85.80 Other specified disorders of bone density and structure, unspecified site (principal)
CPT/HCPCS: 77080

== ENCOUNTER → 2025-02-19 14:18 | Outpatient (CLI) | payer OTHER, SELFPAY ==
--- NOTE | 2025-02-19 14:20 | DI.CT.S_ITS ---
PROCEDURE: CT CHEST W CON INDICATIONS: fever unknown orgin TECHNIQUE: After the administration of intravenous contrast, 5 mm thick sections acquired from the pulmonary apices to the posterior costophrenic angles. 1 mm axial lung, 5 mm thick coronal and sagittal reformats and 7 mm axial MIP were acquired. For radiation dose reduction, the following was used: automated exposure control, adjustment of mA and/or kV according to patient size. COMPARISON: None. FINDINGS: Image quality: Diagnostic Lungs and pleura: No airspace consolidation or pleural effusions. No suspicious pulmonary nodule. Mediastinum, heart, and esophagus: Unremarkable esophagus. Normal heart size. No lymphadenopathy by size criteria. Chest wall and thyroid: Breast implants. No axillary lymphadenopathy by size criteria. Upper abdomen: Partially visualized, no gross abnormality seen Bones: No aggressive appearing osseous abnormality. IMPRESSION: No airspace consolidation. No pleural effusion. No acute intrathoracic abnormality. Dictated by: Luis Sanon M.D. on 02/21/2025 at 6:15 Approved by: Luis Sanon M.D. on 02/21/2025 at 6:19
[2025-02-19 17:49] LABS: Ferritin 15 ng/mL (6-137)
[2025-02-22 22:07] LABS: QuantiFERON Mitogen Value >10.00 IU/mL (.); QuantiFERON Nil Value 0.18 IU/mL (.); QuantiFERON TB Gold Plus Negative (Negative); QuantiFERON TB1 Ag Value 0.17 IU/mL (.); QuantiFERON TB2 Ag Value 0.15 IU/mL (.)
== END ==
PROVIDERS: PCP Family Medicine; Referring Provider Family Medicine; Visit Provider Family Medicine
DX: R50.9 Fever, unspecified (principal)
CPT/HCPCS: 71260; 82728; 86038; 86430; 86480; Q9967

== ENCOUNTER → 2025-02-27 17:26 | Outpatient (CLI) | payer OTHER, SELFPAY ==
--- NOTE | 2025-02-27 17:27 | DI.US.S_ITS ---
PROCEDURE: US PELVIC COMPLETE INDICATIONS: pelvic mass TECHNIQUE: Real-time scanning was performed of the pelvic organs, with image documentation. Additional endovaginal scanning was necessary due to incomplete visualization of the adnexal and endometrial structures by transabdominal scanning. COMPARISON: [facility], , PELVIC COMPLETE, 07/12/2022, 9:07. FINDINGS: Uterus: Uterus is surgically absent. No abnormality is seen in vaginal cuff region. Ovaries: Bilateral ovaries are not visualized. No adnexal mass is seen. Other: No pathologic free abdominal or pelvic fluid. IMPRESSION: Prior partial hysterectomy. No abnormality is seen in vaginal cuff region. Bilateral ovaries are not visualized. No adnexal mass. We strive to produce accurate, complete, and clear reports of imaging services. To assist us in improving patient care, this report was composed using standard report templates and voice recognition software. Therefore, it may contain abnormal punctuation, insertions and/or omissions. Occasional wrong-word or sound-alike substitutions may occur. Though we review the report and make efforts to correct it, we do recommend that the report be read carefully in proper context to recognize any text inaccuracies. Dictated by: Nayan Gallo M.D. on 02/28/2025 at 12:47 Approved by: Nayan Gallo M.D. on 02/28/2025 at 12:48
== END ==
LOC: US 17:26
PROVIDERS: PCP Family Medicine; Referring Provider Family Medicine; Visit Provider Family Medicine
DX: R19.00 Intra-abdominal and pelvic swelling, mass and lump, unspecified site (principal); Z90.710 Acquired absence of both cervix and uterus
CPT/HCPCS: 76830; 76856

== ENCOUNTER → 2025-03-20 11:39 | Oncology outpatient (ONC) | payer OTHER, SELFPAY ==
[2025-02-09 14:13] VITALS: BP 147/66; PULSE 82; RESP 16; TEMP 37; O2SAT 100
[2025-02-09] MEDS: SODIUM CHLORIDE 0.9% 1,000 ML 1000 ML IV (14:15)
[2025-02-09 15:33] VITALS: BP 113/70; PULSE 76; RESP 18
[2025-02-12 10:09] VITALS: BP 127/72; PULSE 90; RESP 18; TEMP 37.1; O2SAT 99
[2025-02-12] MEDS: SODIUM CHLORIDE 0.9% 1,000 ML 1000 ML IV (10:20)
[2025-02-12 11:30] VITALS: BP 116/73; PULSE 68; RESP 18; TEMP 36.4; O2SAT 99
[2025-02-16] VITALS (7 sets, daily range): BP systolic 108–117; BP diastolic 65–68; PULSE 91–103; RESP 16; TEMP 37.2–38.4; O2SAT 98–100
[2025-02-16] MEDS: SODIUM CHLORIDE 0.9% 1,000 ML 1000 ML IV (14:30)
[2025-02-16 16:50] LABS: Add Manual Diff / Slide Review NO; Hematocrit 27.3 % (36-46); Hemoglobin 9.1 g/dL (12.0-16.0); Lymphocytes Absolute Auto 4700 /uL (1100-4500); Mean Corpuscular HGB Conc 33.1 % (30-36); Mean Corpuscular Hemoglobin 28.1 PG (26-34); Mean Corpuscular Volume 84.8 fL (80-100); Platelet Count 511 X10^3/uL (150-400)
--- NOTE | 2025-02-16 16:53 | INF.NOTE ---
Patient here for Normal Saline infusion, tolerated well. Patient spiking fever by end of infusion, as she reports happens in afternoons. Called and spoke with Dr Henriquez staff and notified them of patient fever and symptoms of dizziness. Orders entered by providers/nursing for labs. Additional order given for Tylenol PO see entered order in ambulatory orders.
[2025-02-16] MEDS: ACETAMINOPHEN 325 MG TABLET 975 MG PO (17:07)
[2025-02-16 17:10] LABS: Alanine Aminotransferase 20 IU/L (<35); Albumin 3.3 g/dL (3.5-5.0); Albumin Globulin Ratio 1.1 (1.0-2.8); Alkaline Phosphatase 47 U/L (38-126); Blood Urea Nitrogen 10 mg/dL (7-17); Calcium 7.8 mg/dL (8.4-10.2); Carbon Dioxide 24 mmol/L (22-32); Chloride 103 mmol/L (98-107); Estimated Glomerular Filt Rate > 60 mL/min (>60); Globulin 3.0 g/dL (1.7-4.1); Glucose 97 mg/dL (70-99); HEMOLYSIS < 15 (0-50); Potassium 4.0 mmol/L (3.4-5.1); Sodium 133 mmol/L (137-145); Total Protein 6.3 g/dL (6.3-8.2)
[2025-02-16 17:39] LABS: Coronavirus NL 63 Not Detected (Not Detect); SARS- CoV-2 Not Detected (Not Detecte)
[2025-02-16 17:52] LABS: Alanine Aminotransferase 20 IU/L (<35); Albumin 3.3 g/dL (3.5-5.0); Albumin Globulin Ratio 1.1 (1.0-2.8); Alkaline Phosphatase 48 U/L (38-126); Globulin 2.9 g/dL (1.7-4.1); HEMOLYSIS < 15 (0-50); Total Protein 6.2 g/dL (6.3-8.2)
--- NOTE | 2025-02-16 17:56 | PC.NURSE ---
Patient reports not feeling well, states she is dizzy, feverish, shaking and is questioning if she should go to ED as typically if these sx appear after hours she has been instructed to go for work up. RAFI Newsome pt, contacted Jaycee Henriquez M.D. Provider ordered labs. Pt kept in infusion to monitor fever and draw labs from existing IV line. Tylenol dispensed. Pt vitals stable, fever going down.
--- NOTE | 2025-02-16 18:05 | INF.NOTE ---
Patient kept here for fever, chills, dizziness, sweating/diaphoresis. Monitored by RN & MA. Dr Henriquez notified and multiple labs ordered, PO tylenol, and repeated Vitals. Patient responded well to PO tylenol and oral fluids/water/juice with reduction in fever and decreased dizziness, sweating. Labs all labeled and sent to lab. Patient provided list of labs drawn today for f/u with Dr Henriquez and instructed to seek ER as advised if fever recurs and is resistant to tylenol, especially if it elevates to 105 as has in past with rigors, muscle cramps, pain, chills, shivering and spiking quickly in 30 to 45 minutes. Patient verbalized understanding. Dr Henriquez and staff aware of patient response to tylenol and vitals documented in flowsheet for review. Patient safe to discharge home.
[2025-02-17 15:17] LABS: HIV 1 & 2 Ab/Ag 4th Gen Combo NEGATIVE (NEGATIVE)
[2025-02-18 12:40] LABS: CMV DNA, Quant Real Time PCR Positive < 200 IU/mL (Negative)
[2025-02-19 14:12] LABS: Epstein-Barr DNA Quant, PCR Negative (Negative)
--- NOTE | 2025-02-19 14:21 | INF.NOTE ---
Patient here for NS infusion appointment. She has orders from visit w/ Dr Henriquez on 02/17/25 for labs, ultrasound, and ct scan. She forgot CT was today and I called CT room and breeder hen service technician stated she can come down there now for CT, I assured them I would place the IV for CT and then patient will return to us for her infusion and I will draw the labs ordered by Dr Henriquez as well.
[2025-02-19] MEDS: SODIUM CHLORIDE 0.9% 1,000 ML 1000 ML IV (14:45)
[2025-02-19 14:55] VITALS: BP 110/76; PULSE 75; RESP 16; TEMP 36.9; O2SAT 100
--- NOTE | 2025-02-19 16:01 | INF.NOTE ---
Patient tolerated NS infusion well. No fever today at appointment. Labs ordered by Dr Henriquez drawn -- Rheumatoid Factor, Ferritin, KIESHA screen, and Quantiferon Gold TB. Patient was also able to get her CT scan completed with PIV infusion nurse placed in L prior to her NS infusion.
[2025-02-23] MEDS: SODIUM CHLORIDE 0.9% 1,000 ML 1000 ML IV (14:12)
[2025-02-23 14:20] VITALS: BP 110/70; PULSE 80; RESP 18; TEMP 36.8; O2SAT 100
[2025-02-26] MEDS: SODIUM CHLORIDE 0.9% 1,000 ML 1000 ML IV (14:05)
[2025-02-26 14:34] VITALS: BP 117/72; PULSE 85; RESP 18; TEMP 37.8; O2SAT 100
[2025-03-10 14:12] VITALS: BP 116/66; PULSE 86; RESP 18; TEMP 36.9; O2SAT 98
[2025-03-10] MEDS: SODIUM CHLORIDE 0.9% 1,000 ML 1000 ML IV (14:30)
[2025-03-10 15:39] VITALS: BP 99/66; PULSE 78; RESP 18; TEMP 37.1; O2SAT 100
[2025-03-18 14:16] VITALS: BP 124/83; PULSE 85; RESP 16; TEMP 36.6; O2SAT 100
[2025-03-18] MEDS: SODIUM CHLORIDE 0.9% 1,000 ML 1000 ML IV (14:20)
[2025-03-18 15:28] VITALS: BP 104/67; PULSE 76; RESP 16; TEMP 36.7; O2SAT 100
[2025-03-20] MEDS: SODIUM CHLORIDE 0.9% 1,000 ML 1000 ML IV (11:45)
[2025-03-20 12:21] VITALS: BP 113/78; PULSE 80; RESP 18; TEMP 36.5; O2SAT 100
== END ==
PROVIDERS: PCP Family Medicine; Referring Provider Family Medicine; Visit Provider Family Medicine
DX: K51.919 Ulcerative colitis, unspecified with unspecified complications (principal); E86.0 Dehydration; R50.9 Fever, unspecified
CPT/HCPCS: 36415; 71260; 80053; 80076; 82728; 85025; 86038; 86430; 86480; 86644; 86645; 87040; 87389; 87497; 87633; 87798; 96360; 96361; Q9967